=== PATIENT | male | born 1950 | race Asian ===

== ENCOUNTER 2021-04-10 08:00 | Inpatient (IN) | payer MEDICAID, OTHER, SELFPAY ==
[2021-04-10] VITALS (8 sets, daily range): BP systolic 134–170; BP diastolic 74–88; PULSE 54–87; RESP 16–20; TEMP 36.6–37.3; O2SAT 96–99; BMI 24.5
--- NOTE | ~2021-04-10 | CT_ITS ---
EXAMINATION: CT angio head neck CLINICAL INFORMATION: Right-sided neurological deficit. COMPARISON: No relevant prior imaging. TECHNIQUE: Emergency Medicine Nurse Practitioner images were obtained. A CT angiogram of the head and neck was performed in the arterial phase after the intravenous administration of 70 mL Omnipaque 350. Pre and delayed postcontrast images of the head were also obtained. MIP reconstructions were generated in multiple orientations at the acquisition workstation. Multiple three-dimensional surface rendered images and maximum intensity projection images were generated on a dedicated 3-D lab workstation. Arterial stenoses are measured in accordance with NASCET criteria or similar method if applicable. This CT examination was performed using dose optimization techniques as appropriate, including one or more of the following: Automated exposure control, iterative reconstruction, and adjustment of technique factors (mA and/or kVp) according to patient size (this includes techniques or standardized protocols for targeted exams where dose is matched to indication/reason for exam). Total exam dose-length product 2327 mGy-cm FINDINGS: Head: There is no acute intracranial hemorrhage or abnormal extra-axial collection. Postcontrast images reveal no abnormal mass or enhancement within the intracranial compartment. No intracranial mass effect or midline shift. Lateral and third ventricles are normal. No hydrocephalus. Garcia-white matter differentiation is preserved and there is no evidence of acute territorial infarct. The calvarium and skull base are intact. Mastoid air cells and middle ear cavities are well aerated. No extracranial sinus disease. CT angiogram neck: The aortic arch apex is normal. Origins of the major aortic branches are widely patent. Common carotid arteries and carotid bifurcations are normal. No stenosis of the extracranial internal carotid arteries. The cervical segments of the vertebral arteries as well as their origins are patent. CT angiogram head: Intracranial internal carotid arteries are patent. Intradural vertebral artery segments and basilar artery are patent. There is mild to moderate segmental narrowing involving the M1 segments of both middle cerebral arteries. This finding is well depicted on the left on axial MIP image 106 of 155 series 17 and on the right on axial MIP image 114 of the same series. There is also mild to moderate segmental narrowing involving the P2 segments of both posterior cerebral arteries. No intracranial large vessel occlusion. No evidence of aneurysm or high flow vascular malformation. The timing of the contrast injection provides adequate opacification of the dural venous sinuses which are patent. Other: Soft tissues of the neck including the thyroid gland are normal. Visualized lung apices are clear. There is no acute osseous finding. Specifically no worrisome lytic or blastic osseous lesion. Grossly no evidence of canal compromise. CT/CT angio head neck IMPRESSION: There is cerebrovascular disease with mild to moderate segmental narrowing involving the M1 segments of both middle cerebral arteries and the P2 segments of both posterior cerebral arteries. Otherwise unremarkable CT angiogram of the head and neck in that there is no intracranial large vessel occlusion. No stenosis of the cervical carotid or vertebral arteries. No evidence acute territorial infarct or hemorrhage. No abnormal intracranial mass or enhancement.
--- NOTE | ~2021-04-10 | MR_ITS ---
EXAMINATION: MR BRAIN WITHOUT CONTRAST CLINICAL INFORMATION: Stroke. COMPARISON: Head CTA 04/10/2021. TECHNIQUE: Multiplanar, multisequence imaging of the brain was performed without intravenous contrast. FINDINGS: There is an acute lacunar infarct within the left basal ganglia no large territorial infarction or hemorrhage is seen. Mild scattered foci of T2/FLAIR hyperintensity seen in the bilateral cerebral white matter most compatible with chronic microangiopathy. The ventricles are normal in size and configuration without evidence of hydrocephalus. The orbital contents appear normal. The extracranial structures are within normal limits. MR/MR head/brain wo con IMPRESSION: Acute lacunar infarction within the left basal ganglia. No hemorrhage or large territorial infarction. Background changes of mild chronic microangiopathy.
--- NOTE | ~2021-04-10 | XR_ITS ---
EXAMINATION: XR CHEST CLINICAL INFORMATION: Stroke symptoms. COMPARISON: None TECHNIQUE: Portable upright AP x2 views of the chest was obtained. FINDINGS: There is mild hyperinflation. The lungs are clear. There is no airspace consolidation, vascular congestion, groundglass opacity, or effusion. The heart is normal in size. The hilar and mediastinal contours are unremarkable. There is likely mild loss of height at level mid thoracic vertebral bodies. No paraspinal soft tissue swelling. XR/XR chest 1V IMPRESSION: Mild hyperinflation. Lungs clear.
--- NOTE | 2021-04-10 08:10 | ECG_ITS ---
Test Reason : ARM WEAKNESS Blood Pressure : / mmHG Vent. Rate : 066 BPM Atrial Rate : 066 BPM P-R Int : 154 ms QRS Dur : 084 ms QT Int : 396 ms P-R-T Axes : 050 028 -01 degrees QTc Int : 415 ms Normal sinus rhythm Minimal voltage criteria for LVH, may be normal variant Borderline ECG No previous ECGs available Referred By: Angela Liao Electronically Signed By:RYLEE HERNANDEZ
--- NOTE | 2021-04-10 08:10 | ED.NEUROSD ---
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 Mode of arrival: ambulatory Limitations: no limitations History of Present Illness Onset (ago): week(s) (2 weeks R arm, R face yesterday) Timing confirmed by: family member Location: speech, right face and right arm History of same: Yes Severity: mild Quality: weak Relieving factors: none Exacerbating factors: none Context: gradual onset On Anticoagulants: No Associated symptoms: denies other symptoms Treatments Prior to Arrival: none Related Data Home Medications Medication Instructions Recorded Confirmed ascorbic acid 125 mg-collagen, 1 cap PO DAILY 04/10/21 04/10/21 hydrolyzed 740 mg capsule (Collagen Plus Vitamin C) aspirin 81 mg chewable tablet 2 - 3 tab PO DAILY 04/10/21 04/10/21 ubidecarenone-omega 3-vit E 50 1 cap PO DAILY 04/10/21 04/10/21 mg-300 (180-120)mg-30 unit capsule Allergies Allergy/AdvReac Type Severity Reaction Status Date / Time No Known Allergies Allergy Verified 04/10/21 08:09 Review of Systems Review of Systems: Constitutional :No Fever, No Chills ENT/Mouth : No sore throat, No Rhinorrhea Eyes: No Eye Pain, No Swelling, No Redness Cardiovascular : No Chest Pain, No SOB Respiratory : No Cough, No Sputum, No Wheezing Gastrointestinal : No Nausea, No Vomiting, No Diarrhea, No Constipation, No abdominal Pain Genitourinary : No Dysuria, No Urinary Frequency, No Hematuria, Musculoskeletal : No joint pain, No Myalgias, No Joint Swelling Skin : No Skin Lesions, No rash Neuro : pos Weakness, No Numbness, No Dizziness, No Headache Psych : No Anxiety/Panic, No Depression All other systems reviewed and are negative [facility] Past Medical History Medical History No known health problems Social History Social History (Updated 04/10/21 @ 08:28 by Angela Liao DO) Patient Tobacco Use Status: Never used Tobacco Use of substances other than those prescribed or required for medical reasons: No Advance Directives: No Physical Exam Vital Signs: Vital Signs: Last Vital Signs Temp 98.5 F 04/10/21 08:08 Pulse 54 09/09/21 10:32 Resp 16 04/10/21 10:32 BP 139/74 04/10/21 10:32 Pulse Ox 98 04/10/21 10:32 Body Mass Index 24.5 Appearance: Alert. Oriented X3. No acute distress. Eyes: Pupils equal, round and reactive to light. ENT: Pharynx normal. Neck: Normal inspection. Neck supple. CVS: Normal heart rate and rhythm. Pulses normal. Respiratory: No respiratory distress. Breath sounds normal. Abdomen: Soft and non-tender. Skin: Skin warm and dry. Normal skin color. Normal skin turgor. Extremities: No lower extremity edema. No calf ttp Neuro: Oriented X 3. No sensory deficit. R hand 4+/5, R face mild facial droop lower, slurred speech mild. Course Course Course Narrative: given deficits and workup including vascular disease noted will admit for further workup MDM - Neuro Symptoms/Deficit MDM Narrative Medical decision making narrative: 70 yo male with no known medical problems on supplements and baby ASA here with 2 weeks of intermittent R arm weakness since yesterday has had R sided facial droop and slurred speech. Will need labs, CT and CTA of brain. No OAC. Given onset yesterday he is not a candidate for tPA at this time. Suspect stroke Lab Data Result diagrams: 04/10/21 08:30 04/10/21 08:30 Labs: Lab Results 04/10/21 04/10/21 04/10/21 Range/Units 08:30 08:30 08:30 WBC 4.7 L (4.8-10.8) X10*3/uL RBC 4.19 L (4.60-5.80) X10*6/uL Hgb 13.0 L (14.0-18.0) g/dl Hct 39.0 L (42-52) % MCV 93.1 (80-98) fL MCH 31.0 (27.0-33.0) pg MCHC 33.3 (31.0-36.0) g/dl RDW 12.6 (11.0-16.0) % Plt Count 168 (160-400) X10*3/uL MPV 10.7 (9.4-12.4) fL Immature Gran % (Auto) 0.2 (0.0-0.4) % Neut % (Auto) 58.8 (45-73) % Lymph % (Auto) 31.1 (20-40) % [place] % (Auto) 8.7 (2-11) % Eos % (Auto) 0.8 (0-4) % Baso % (Auto) 0.4 (0-2) % Lymph # (Auto) 1.5 (1.2-4.9) X10*3/uL [place] # (Auto) 0.4 (0.1-1.2) X10*3/uL Eos # (Auto) 0.0 (0.0-0.4) X10*3/uL Baso # (Auto) 0.0 (0.0-0.2) X10*3/uL Abs Immat Gran (auto) 0.01 (0.00-0.03) X10*3/uL Absolute Neuts (auto) 2.8 (2.0-8.3) X10*3/uL Absolute Nucleated RBC 0.000 (0.0-0.012) X10*3/uL Nucleated RBC % (auto) 0.0 (0.0-0.2) /100WBC PT 11.5 (9.9-13.0) SEC INR 1.0 (0.9-1.1) APTT 36.6 (24.1-38.0) SEC Sodium 141 (135-145) mmol/L Potassium 3.9 (3.3-5.1) mmol/L Chloride 108 (96-108) mmol/L Carbon Dioxide 27 (22-29) mmol/L Anion Gap 10 L (12-20) BUN 14 (9-16) mg/dL Creatinine 0.86 (0.5-1.4) mg/dL Estim Creat Clear Calc 61.7 Estimated GFR > 60 Random Glucose 112 (60-115) mg/dL Calcium 8.8 (8.4-10.2) mg/dL Magnesium 2.2 (1.6-2.6) mg/dL Total Bilirubin 0.6 (0.0-1.0) mg/dL Direct Bilirubin 0.2 (0.0-0.5) mg/dL AST 16 (5-37) U/L ALT 12 (0-40) U/L Alkaline Phosphatase 70 (39-117) U/L Troponin I High Sens (<3.5-35.0) ng/L Total Protein 6.3 L (6.5-8.0) g/dL Albumin 3.9 (3.5-5.0) g/dL TSH 1.20 (0.32-4.0) uIU/mL Urine Color Urine Appearance Urine pH (5.0-8.0) Ur Specific [place] (1.005-1.025) Urine Protein (NEG-TRACE) MG/DL Urine Glucose (UA) (NEG) MG/DL Urine Ketones (NEG) MG/DL Urine Blood (NEG) Urine Nitrite (NEG) Ur Leukocyte Esterase (NEG) COVID-19 (OTILIA) (Negative) COVID-19 Clin Com 04/10/21 04/10/21 04/10/21 Range/Units 08:30 08:30 10:19 WBC (4.8-10.8) X10*3/uL RBC (4.60-5.80) X10*6/uL Hgb (14.0-18.0) g/dl Hct (42-52) % MCV (80-98) fL MCH (27.0-33.0) pg MCHC (31.0-36.0) g/dl RDW (11.0-16.0) % Plt Count (160-400) X10*3/uL MPV (9.4-12.4) fL Immature Gran % (Auto) (0.0-0.4) % Neut % (Auto) (45-73) % Lymph % (Auto) (20-40) % [place] % (Auto) (2-11) % Eos % (Auto) (0-4) % Baso % (Auto) (0-2) % Lymph # (Auto) (1.2-4.9) X10*3/uL [place] # (Auto) (0.1-1.2) X10*3/uL Eos # (Auto) (0.0-0.4) X10*3/uL Baso # (Auto) (0.0-0.2) X10*3/uL Abs Immat Gran (auto) (0.00-0.03) X10*3/uL Absolute Neuts (auto) (2.0-8.3) X10*3/uL Absolute Nucleated RBC (0.0-0.012) X10*3/uL Nucleated RBC % (auto) (0.0-0.2) /100WBC PT (9.9-13.0) SEC INR (0.9-1.1) APTT (24.1-38.0) SEC Sodium (135-145) mmol/L Potassium (3.3-5.1) mmol/L Chloride (96-108) mmol/L Carbon Dioxide (22-29) mmol/L Anion Gap (12-20) BUN (9-16) mg/dL Creatinine (0.5-1.4) mg/dL Estim Creat Clear Calc Estimated GFR Random Glucose (60-115) mg/dL Calcium (8.4-10.2) mg/dL Magnesium (1.6-2.6) mg/dL Total Bilirubin (0.0-1.0) mg/dL Direct Bilirubin (0.0-0.5) mg/dL AST (5-37) U/L ALT (0-40) U/L Alkaline Phosphatase (39-117) U/L Troponin I High Sens < 3.5 (<3.5-35.0) ng/L Total Protein (6.5-8.0) g/dL Albumin (3.5-5.0) g/dL TSH (0.32-4.0) uIU/mL Urine Color YELLOW Urine Appearance CLEAR Urine pH 7.0 (5.0-8.0) Ur Specific [place] <= 1.005 (1.005-1.025) Urine Protein NEG (NEG-TRACE) MG/DL Urine Glucose (UA) NEG (NEG) MG/DL Urine Ketones NEG (NEG) MG/DL Urine Blood NEG (NEG) Urine Nitrite NEG (NEG) Ur Leukocyte Esterase NEG (NEG) COVID-19 (OTILIA) Negative (Negative) COVID-19 Clin Com See Note ECG Data Attestation: I personally reviewed and interpreted this ECG as follows: ECG interpretation date: 04/10/21 ECG interpretation time: 08:18 Interpretation: Rate: 66 Rhythm: NSR [place]: normal LVH Normal P waves. Normal JOSSY. Normal QRS complex. ST T wave : normal no AMITA qTC: normal prior studies: no acute ischemia The study has been interpreted contemporaneously by me. . NIH Stroke Scale Internal: Initial- Upon Arrival Level of Consciousness: Alert Level of Consciousness Questions: Answers both questions correctly Level of Consciousness Commands: Performs both tasks correctly Best Gaze: Normal Visual: No visual loss Facial Palsy: Minor paralyis Motor Arm (Right): Drift Motor Arm (Left): No drift Motor Leg (Right): No drift Motor Leg (Left): No drift Limb Ataxia: Absent Sensory: Normal Best Language: No aphasia Dysarthia: Mild to moderate dysarthria Extinction and Inattention: No abnormality Score: 3 Discharge Plan Discharge Clinical Impression: Dysarthria, Facial droop, Cerebrovascular disease Patient Disposition: Admitted As Inpatient Prescriptions: No Action aspirin 81 mg Tablet,Chewable 2 - 3 tab PO DAILY RF: 0 CoQ-10 and Fish Oil 50-300-30 mg-mg-unit Capsule 1 cap PO DAILY RF: 0 Collagen Plus Vitamin C 125-740 mg Capsule 1 cap PO DAILY RF: 0
[2021-04-10 08:40] LABS: MANUAL DIFF FLAG NO
[2021-04-10 08:41] LABS: Basophils Percent Auto 0.4 % (0-2); Eosinophils Percent Auto 0.8 % (0-4); Imm Gran Abs Auto 0.01 X10*3/uL (0.00-0.03); Imm Gran Pct Auto 0.2 % (0.0-0.4); Lymphocytes Absolute Auto 1.5 X10*3/uL (1.2-4.9); Lymphocytes Percent Auto 31.1 % (20-40); Mean Corpuscular HGB Conc 33.3 g/dl (31.0-36.0); Mean Corpuscular Volume 93.1 fL (80-98); Mean Platelet Volume 10.7 fL (9.4-12.4); Monocytes Absolute Auto 0.4 X10*3/uL (0.1-1.2); Monocytes Percent Auto 8.7 % (2-11); Neutrophils Absolute Auto 2.8 X10*3/uL (2.0-8.3); Neutrophils Percent Auto 58.8 % (45-73); Platelet Count 168 X10*3/uL (160-400); Red Blood Count 4.19 X10*6/uL (4.60-5.80); Red Cell Distribution Width 12.6 % (11.0-16.0); White Blood Count 4.7 X10*3/uL (4.8-10.8)
[2021-04-10 08:47] LABS: Prothrombin Time 11.5 SEC (9.9-13.0)
[2021-04-10 08:50] LABS: Partial Thromboplastin Time 36.6 SEC (24.1-38.0)
[2021-04-10 09:00] LABS: COVID-19 Test Negative (Negative); IDNOW Serial# 9DD0AD1C
[2021-04-10 09:01] LABS: Alanine Aminotransferase 12 U/L (0-40); Albumin Level 3.9 g/dL (3.5-5.0); Alkaline Phosphatase 70 U/L (39-117); Anion Gap 10 (12-20); Aspartate Amino Transferase 16 U/L (5-37); Bilirubin Direct 0.2 mg/dL (0.0-0.5); Bilirubin Total 0.6 mg/dL (0.0-1.0); Blood Urea Nitrogen 14 mg/dL (9-16); Calcium 8.8 mg/dL (8.4-10.2); Carbon Dioxide 27 mmol/L (22-29); Chloride 108 mmol/L (96-108); Creatinine Clr Calc Pharmacy 61.7; Estimated Glomerular Filt Rate > 60; Glucose Random 112 mg/dL (60-115); Magnesium 2.2 mg/dL (1.6-2.6); Potassium 3.9 mmol/L (3.3-5.1); Sodium 141 mmol/L (135-145); Total Protein 6.3 g/dL (6.5-8.0)
[2021-04-10 09:05] LABS: Troponin-I High Sensitivity < 3.5 ng/L (<3.5-35.0)
[2021-04-10] MEDS: iohexoL 350 MG/ML 100 ML INFUS..BTL IV (10:18)
--- NOTE | 2021-04-10 10:24 | PHA.MEDREC ---
Pharmacy Consult ? Medication Reconciliation Pharmacy has completed the medication reconciliation. Patient takes almost only supplements. Reports also taking Aspirin 2-3 tablets, ad gets them from [facility]. They reports getting a medication from [facility]. It is for emergency use for the heart/chest pain, and it dissolved under the tongue. Under my impression it is the [place] version of nitroglcerin. Patient has this medication on him. Patient reports he took none of his supplements today. Gabi Mendes, PharmD
[2021-04-10 10:34] LABS: Appearance Urine CLEAR; Color Urine YELLOW; Glucose Urine UA NEG (NEG); Leukocyte Esterase Urine NEG (NEG); Nitrite Urine NEG (NEG); Specific Gravity - Urine <= 1.005 (1.005-1.025); Urine Blood NEG (NEG); Urine Ketones NEG (NEG); Urine Protein NEG (NEG-TRACE)
[2021-04-10] MEDS: Aspirin 325 MG TABLET PO (11:36)
--- NOTE | 2021-04-10 12:46 | P.HPHOSP_ITS ---
History of Present Illness Date of Service: 04/10/21 Chief Complaint: R arm weakness This is a 70 yo Torrey Bhatti with a PMH of CAD s/p MS (no stent placed per reported history), suspected CVA back in 1985 who presents to the hospital with complaints of RUE weakness and facial drop which have been intermittently pr esent for the last week, but persisted since yesterday. The history is obtained with the help of a Mandarin speaking service shop foreman (#[id number]) as well as the help of the patients daughter and son-in-law who are bedside. Apparently, starting about 2 weeks ago the patient noticed that his RUE was weak and clumsy. This was first noticed when he went to scratch his head but was unable to. This resolved on its own, lasing about 1/2 the day. Subsequently it occured yesterday and he now reports persistent feelings of his hand being clumsy. The family also noted a facial droop starting at least yesterday and they also reported a change in his speech. In regards to his prior diagnosis of CVA and MS -- patient reports similar, although not as severe as currently, symptoms in 1985 (RUE weakness) and at that time he was told this may have been a stroke. However, this was not officially confirmed. He reports not issues since then until the current episode. In regards to his MS -- in 2017 (in [place]) he had substernal chest pain was diagnosed with an acute MS but no stents were placed. He was apparently on aspirin as some point in the past, but stopped this -- unclear when. He has restarted his aspirin for the last 2 weeks when these symptoms began. Upon arrival to the ED, he was noted to have slurred speech, mild RUE weakness and a facial droop. He underwent a CTA which was negative for any LV occlusions, but there was moderate disease noted. He was deemded out of the window for tPA as his last well known time was at least the day before arrival. A presumptive diagnosis of acute CVA was made and admission was requested. He reports he has been vaccinated for COVID 19 with Pfizer vaccine. Review of Systems Review of Systems: General - denies fevers or chills, denies weakness or fatigue HEENT -denies blurred vision, denies headache, denies sore throat Cardiovascular - denies chest pain or palpitations, denies edema Respiratory - denies shortness of breath, coughing, wheezing Gastrointestinal - denies abdominal pain, nausea, vomiting, diarrhea - denies flank pain, denies dysuria, denies frequency or urgency Musculoskeletal - denies back pain, denies hip pain, denies knee pain, denies shoulder pain Neurological - RUE weakness, difficulty speaking Skin, denies any bruising or redness Psychiatric - denies any suicidal ideation, hallucinations, homicidal ideation Endocrinology - denies intolerance to hot / cold temperatures Yes all other systems are reviewed and are negative [facility] Medical History (Updated 04/10/21 @ 13:01 by Terence Rader MD) CAD (coronary artery disease) CVA (cerebral vascular accident) No known health problems Family History (Updated 04/10/21 @ 13:03 by Terence Rader MD) Other CAD (coronary artery disease) Surgical History (Updated 04/10/21 @ 13:01 by Terence Rader MD) No significant past surgical history Social History (Updated 04/10/21 @ 13:02 by Terence Rader MD) Alcohol intake: never Patient Tobacco Use Status: Former Tobacco user Use of substances other than those prescribed or required for medical reasons: No Advance Directives: No Meds Allergies Allergy/AdvReac Type Severity Reaction Status Date / Time No Known Allergies Allergy Verified 04/10/21 08:09 Active Medications: Current Medications Generic Name Dose Route Start Last Admin Trade Name Freq PRN Reason Stop Dose Admin Acetaminophen 650 mg 04/10/21 12:38 Acetaminophen 325 Mg Tablet PO Q6H PRN Pain, Mild (Pain Scale 1-3) Aspirin 81 mg 04/11/21 09:00 Aspirin Enteric Coated 81 Mg Tablet.Dr PO DAILY [facility] Atorvastatin Calcium 80 mg 04/10/21 21:00 Atorvastatin Calcium 80 Mg Tablet PO BEDTIME [facility] Enoxaparin Sodium 40 mg 04/10/21 12:45 Enoxaparin Sodium 40 Mg/0.4 Ml Syringe SUBCUT Q24H [facility] Ondansetron HCl 4 mg 04/10/21 12:38 Ondansetron Hcl 4 Mg/2 Ml Vial IVPUSH Q8H PRN Nausea and Vomiting Pharmacy Consult 1 each 04/10/21 08:10 Consult Rx Perform Med Rec MISCELLANE ONCE PRN Consult order Sodium Chloride 3 ml 04/10/21 16:00 0.9 % Sodium Chloride Flush 3 Ml Syringe IVFLUSH QSHIFT [facility] Home Medications Medication Instructions Recorded Confirmed Last Taken Type ascorbic acid 125 mg-collagen, 1 cap PO DAILY 04/10/21 04/10/21 Unknown History hydrolyzed 740 mg capsule (Collagen Plus Vitamin C) aspirin 81 mg chewable tablet 2 - 3 tab PO DAILY 04/10/21 04/10/21 Unknown History ubidecarenone-omega 3-vit E 50 1 cap PO DAILY 04/10/21 04/10/21 Unknown History mg-300 (180-120)mg-30 unit capsule Physical Exam Vital Signs and Narrative: Vital Signs: Last Vital Signs Temp 98.5 F 04/10/21 08:08 Pulse 54 04/10/21 10:32 Resp 16 04/10/21 10:32 BP 139/74 04/10/21 10:32 Pulse Ox 98 04/10/21 10:32 Body Mass Index 24.5 Const: Other: Constitutional - Awake and Alert, No apparent distress Eyes - PERRLA, EOMI Cardiovascular - S1S2, RRR, No edema Respiratory - Normal lung expansion, Normal respiratory effort, No respiratory distress, CTA bilaterally Gastrointestinal - NT / ND; +BS; No rebound or guarding - No CVA tenderness Extremities - no calf tenderness bilaterally, no swelling Musculoskeletal - Normal inspection, normal ROM Skin - Warm/Dry Neurological - Alert & oriented x3, Mild weakness in the RUE -- 4+/5; R facial droop; Speech slurred per service shop foreman / family (speaks Mandarin); strenght in LUE and bilateral LE equal and normal Psychological - Appropriate affect Results Labs CBC and Chem 7: 04/10/21 08:30 04/10/21 08:30 Labs: Laboratory Results - last 24 hr 04/10/21 04/10/21 04/10/21 08:30 08:30 08:30 MCV 93.1 MCH 31.0 MCHC 33.3 RDW 12.6 Plt Count 168 MPV 10.7 Immature Gran % (Auto) 0.2 Neut % (Auto) 58.8 Lymph % (Auto) 31.1 [place] % (Auto) 8.7 Eos % (Auto) 0.8 Baso % (Auto) 0.4 Lymph # (Auto) 1.5 [place] # (Auto) 0.4 Eos # (Auto) 0.0 Baso # (Auto) 0.0 Abs Immat Gran (auto) 0.01 Absolute Neuts (auto) 2.8 Absolute Nucleated RBC 0.000 Nucleated RBC % (auto) 0.0 PT 11.5 INR 1.0 APTT 36.6 Anion Gap 10 L Estim Creat Clear Calc 61.7 Estimated GFR > 60 Random Glucose 112 Calcium 8.8 Magnesium 2.2 Total Bilirubin 0.6 Direct Bilirubin 0.2 AST 16 ALT 12 Alkaline Phosphatase 70 Troponin I High Sens Total Protein 6.3 L Albumin 3.9 TSH 1.20 Urine Color Urine Appearance Urine pH Ur Specific [place] Urine Protein Urine Glucose (UA) Urine Ketones Urine Blood Urine Nitrite Ur Leukocyte Esterase COVID-19 (OTILIA) COVID-19 Clin Com 04/10/21 04/10/21 04/10/21 08:30 08:30 10:19 MCV MCH MCHC RDW Plt Count MPV Immature Gran % (Auto) Neut % (Auto) Lymph % (Auto) [place] % (Auto) Eos % (Auto) Baso % (Auto) Lymph # (Auto) [place] # (Auto) Eos # (Auto) Baso # (Auto) Abs Immat Gran (auto) Absolute Neuts (auto) Absolute Nucleated RBC Nucleated RBC % (auto) PT INR APTT Anion Gap Estim Creat Clear Calc Estimated GFR Random Glucose Calcium Magnesium Total Bilirubin Direct Bilirubin AST ALT Alkaline Phosphatase Troponin I High Sens < 3.5 Total Protein Albumin TSH Urine Color YELLOW Urine Appearance CLEAR Urine pH 7.0 Ur Specific [place] <= 1.005 Urine Protein NEG Urine Glucose (UA) NEG Urine Ketones NEG Urine Blood NEG Urine Nitrite NEG Ur Leukocyte Esterase NEG COVID-19 (OTILIA) Negative COVID-19 Clin Com See Note Imaging Radiologist's Impressions: Impressions Chest X-Ray 04/10/21 08:10 IMPRESSION: Mild hyperinflation. Lungs clear. Head/Neck CTA 04/10/21 08:10 IMPRESSION: There is cerebrovascular disease with mild to moderate segmental narrowing involving the M1 segments of both middle cerebral arteries and the P2 segments of both posterior cerebral arteries. Otherwise unremarkable CT angiogram of the head and neck in that there is no intracranial large vessel occlusion. No stenosis of the cervical carotid or vertebral arteries. No evidence acute territorial infarct or hemorrhage. No abnormal intracranial mass or enhancement. Assessment and Plan (1) CVA (cerebral vascular accident): Status: Acute This is a 70 yo Mandarin speaking male who presents to the hospital with acute/subacute neurological deficits most concerning for CVA. He is admitted for further work up and treatment. 1. Suspected Acute vs subacute CVA Risk factors include prior CVA and CAD; also was a previous smoker, stopped in early Check Lipids, A1C; CTA negative for carotid stenosis MRI Brain, telemonitor, 2d echo Will need neurology evaluation, consult ordered usual stroke protocol -- PT/OT, nursing swallow eval prior to oral continue asa 81 and start lipitor 80 once he passes swallow evaluation 2. CAD s/p MS in 2017, per pt report -- no stents placed 2d echo as above DVT pptx - Estefania Endorses his daughter Ana Bryan has HCP He is undecided about code status -- advised him to speak with his family about this; for the time being, agrees on Full Code Quality Stroke Does the patient have a stroke diagnosis?: No VTE Prior VTE?: No VTE Risk Level:: Medical - moderate - high VTE Device Contraindication: Treatment Not Indicated VTE Drug Contraindication: N/A - Med Ordered
--- NOTE | 2021-04-10 13:00 | CA_ITS ---
Transthoracic Echocardiogram Patient (Last, First, Middle): LYLY RODRIGUEZ, Gender: Male Date of : 1950 Age: 70 Procedure Date: 04/10/2021 Procedure Type: Transthoracic Echocardiogram Location: ER Height: 157.48 cm Weight: 61.24 kg BSA: 1.62 m2 Heart Rate: bpm Plug Machine Operator: MENG Referring MD: Terence Rader MD Symptoms: Acute CVA, eval for cardioembolic source, history of CAD Study Quality: Good ECG Rhythm: Sinus Conclusions: - The left ventricular systolic function is normal. The calculated ejection fraction is 61% by biplane method. - There is mild aortic valve regurgitation. Findings Left Ventricle Normal left ventricular cavity size. There is normal left ventricular wall thickness. The left ventricular systolic function is normal. The calculated ejection fraction is 61% by biplane method. There is no evidence of regional wall motion abnormalities. Diastolic function is normal for age. Right Ventricle Normal right ventricular cavity size and systolic function. Atria Both atria are normal in size. Aortic Valve There is a normal trileaflet aortic valve. There is no aortic valve stenosis. There is mild aortic valve regurgitation. Mitral Valve The mitral valve appears normal. There is trace mitral valve regurgitation. There is no mitral valve stenosis. Pulmonic Valve The pulmonic valve was not well visualized. Tricuspid Valve Normal tricuspid valve structure. There is trace tricuspid valve regurgitation. The pulmonary artery systolic pressure is normal. Great Vessels The aortic annulus, sinuses of valsalva, and asc aorta are normal in size. Venous The inferior vena cava is normal in size and collapses greater than 50% with inspiration. Pericardium/Pleural There is no evidence of pericardial effusion. Prior Study Comparison No prior study available for comparison. Measurements 2D Linear Measurements IVSd: 1.04 0.6-0.9/0.6-1.0 cm LVIDd: 5.15 3.9-5.3/4.2-5.9 cm LVIDd Index: 3.18 2.4-3.2/2.2-3.1 cm/m2 LVIDs: 3.40 2.0-3.6 cm LVPWd: 0.95 0.7-1.1 cm Ao Root: 3.60 2.1-3.5 cm LA Diam: 3.50 2.7-3.8/3.0-4.0 cm LAIDs Index: 2.16 1.5-2.3 cm/m2 LV Mass: 235.70 67-162/88-224 g LV Mass Index: 145.50 43-95/49-115 g/m2 LVOT Diam: 2.30 3.0+(-)1.3 cm 2D Systolic Function EF 4C: 57.00 >55% EF 2C: 65.90 >55% EF BiP: 61.20 >55% Mitral Valve MV Pk E: 0.44 MV PK A: 0.54 MV Decel Time: 269.00 E/A: 0.80 E'Lateral: 9.90 E'Medial: 6.64 E/E' Med: 6.60 E/E' Lat: 4.50 PHT: 79.00 MVA PHT: 2.78 Decel [place]: 1.64 Aortic Valve AoV Pk Jerome: 1.60 AoV Mn Jerome: 1.04 AoV VTI: 0.33 AoV Pk Grad: 10.00 Aov Mn Grad: 5.00 TIFFANIE Cont.VTI: 2.73 AI Pk Jerome: 4.78 AI [place]: 2.46 LVOT LVOT Pk Jerome: 1.02 LVOT Mn Jerome: 0.67 LVOT VTI: 0.22 LVOT Pk Grad: 4.00 LVOT Mn Grad: 2.00 LVOT Diam: 2.30 LVOT Area: 4.15 Diastolic Function MV Pk E: 0.44 MV Pk A: 0.54 E/A: 0.80 E'Medial: 6.64 E/E' Med: 6.60 E' Laterial: 9.90 E/E' Lat: 4.50 Right Ventricle TAPSE (mm): 1.96 TVS' Jerome: 11.60 Tricuspid Valve TR Pk Jerome: 2.01 TR Pk Grad: 16.00 RA Press: 3.00 RVSP: 19.00 Great Vessels Aorta Ao Root-2D: 3.60 2.0-3.7 cm Ao Asc: 3.60 2.1-3.4 cm Ao Arch: 3.00 Updated in Other Vendor System with Status of Final Naseem Bowers MD electronically signed on 04/10/2021 4:47:14 PM with status of Final
[2021-04-10 13:31] LABS: Estimated Average Glucose 97 mg/dL
[2021-04-10] MEDS: Enoxaparin Sodium 40 MG/0.4 ML SYRINGE SUBCUT (14:08)
[2021-04-10] MEDS: 0.9 % Sodium Chloride Flush 3 ML SYRINGE IVFLUSH ×2 (17:21→20:48)
--- NOTE | 2021-04-10 17:24 | P.CNNE_ITS ---
History of Present Illness Data of Consult Service Date: 04/10/21 Primary Care Provider: None Physician HPI Reason for consult: Slurred speech and right upper extremity weakness with facial droop This is a 70-year-old man with a possible history of worse small stroke in 1985 while in [place] with right upper extremity weakness had an episode of rightt- sided weakness and some slurring about 2 weeks ago but resolved. Symptoms occurred yesterday and when they persisted more than 24 hhours. He decided to come in. He was noted to have a right facial droop, slurring of speech and clumsiness of the right hand. He had a CT scan of the brain which did not show any acute findings and a CTA which did not show any evidence of large vessel occlusive disease. There is mild to moderate atherosclerosis of the intracra nial M1 segment. Review of Systems Review of Systems: General - denies fevers or chills, denies weakness or fatigue HEENT -denies blurred vision, denies headache, denies sore throat Cardiovascular - denies chest pain or palpitations, denies edema Respiratory - denies shortness of breath, coughing, wheezing Gastrointestinal - denies abdominal pain, nausea, vomiting, diarrhea - denies flank pain, denies dysuria, denies frequency or urgency Musculoskeletal - denies back pain, denies hip pain, denies knee pain, denies shoulder pain Neurological - RUE weakness, difficulty speaking Skin, denies any bruising or redness Psychiatric - denies any suicidal ideation, hallucinations, homicidal ideation Endocrinology - denies intolerance to hot / cold temperatures Yes all other systems are reviewed and are negative [facility] Past Medical History Medical History CAD (coronary artery disease) CVA (cerebral vascular accident) No known health problems Family History Family History (Updated 04/10/21 @ 13:03 by Terence Rader MD) Other CAD (coronary artery disease) Surgical History Surgical History No significant past surgical history Social History Social History (Updated 04/10/21 @ 13:02 by Terence Rader MD) Household Members: Family Housing: House Alcohol intake: never Patient Tobacco Use Status: Former Tobacco user Meds Allergies Allergy/AdvReac Type Severity Reaction Status Date / Time No Known Allergies Allergy Verified 04/10/21 08:09 Active Medications: Current Medications Generic Name Dose Route Start Last Admin Trade Name Freq PRN Reason Stop Dose Admin Acetaminophen 650 mg 04/10/21 12:38 Acetaminophen 325 Mg Tablet PO Q6H PRN Pain, Mild (Pain Scale 1-3) Aspirin 81 mg 04/11/21 09:00 Aspirin Enteric Coated 81 Mg Tablet.Dr PO DAILY [facility] Atorvastatin Calcium 80 mg 04/10/21 21:00 Atorvastatin Calcium 80 Mg Tablet PO BEDTIME [facility] Enoxaparin Sodium 40 mg 04/10/21 12:45 04/10/21 14:08 Enoxaparin Sodium 40 Mg/0.4 Ml Syringe SUBCUT 40 mg Q24H TEE Administration Ondansetron HCl 4 mg 04/10/21 12:38 Ondansetron Hcl 4 Mg/2 Ml Vial IVPUSH Q8H PRN Nausea and Vomiting Pharmacy Consult 1 each 04/10/21 08:10 Consult Rx Perform Med Rec MISCELLANE ONCE PRN Consult order Sodium Chloride 3 ml 04/10/21 16:00 04/10/21 17:21 0.9 % Sodium Chloride Flush 3 Ml Syringe IVFLUSH 3 ml QSHIFT [facility] Administration Home Medications Medication Instructions Recorded Confirmed Last Taken Type ascorbic acid 125 mg-collagen, 1 cap PO DAILY 04/10/21 04/10/21 Unknown History hydrolyzed 740 mg capsule (Collagen Plus Vitamin C) aspirin 81 mg chewable tablet 2 - 3 tab PO DAILY 04/10/21 04/10/21 Unknown History ubidecarenone-omega 3-vit E 50 1 cap PO DAILY 04/10/21 04/10/21 Unknown History mg-300 (180-120)mg-30 unit capsule Physical Exam Vital Signs: Vital Signs: Last Vital Signs Temp 99.1 F 04/10/21 16:00 Pulse 55 04/10/21 16:00 Resp 18 04/10/21 16:00 BP 170/75 H 04/10/21 16:00 Pulse Ox 98 04/10/21 16:00 Body Mass Index 24.5 Const: Other: Constitutional - Awake and Alert, No apparent distress Eyes - PERRLA, EOMI Cardiovascular - S1S2, RRR, No edema Respiratory - Normal lung expansion, Normal respiratory effort, No respiratory distress, CTA bilaterally Gastrointestinal - NT / ND; +BS; No rebound or guarding - No CVA tenderness Extremities - no calf tenderness bilaterally, no swelling Musculoskeletal - Normal inspection, normal ROM Skin - Warm/Dry Neurological - Alert & oriented x3, Mild weakness in the RUE -- 4+/5; R facial droop; Speech slurred per watch assembly instructor / family (speaks Mandarin); strenght in LUE and bilateral LE equal and normal Psychological - Appropriate affect Neuro: Other: Mild dysarthria. Right facial droop and right upper extremity drift Results Labs CBC & Chem 7: 04/10/21 08:30 04/10/21 08:30 Labs: Short CBC 04/10/21 Range/Units 08:30 WBC 4.7 L (4.8-10.8) X10*3/uL Hgb 13.0 L (14.0-18.0) g/dl Hct 39.0 L (42-52) % Plt Count 168 (160-400) X10*3/uL BMP 04/10/21 08:30 Sodium 141 Potassium 3.9 Chloride 108 Carbon Dioxide 27 BUN 14 Creatinine 0.86 Calcium 8.8 Liver Function 04/10/21 Range/Units 08:30 Total Bilirubin 0.6 (0.0-1.0) mg/dL Direct Bilirubin 0.2 (0.0-0.5) mg/dL AST 16 (5-37) U/L ALT 12 (0-40) U/L Alkaline Phosphatase 70 (39-117) U/L Albumin 3.9 (3.5-5.0) g/dL Urine 04/10/21 Range/Units 10:19 Urine Color YELLOW Urine Appearance CLEAR Urine pH 7.0 (5.0-8.0) Ur Specific [place] <= 1.005 (1.005-1.025) Urine Protein NEG (NEG-TRACE) MG/DL Urine Glucose (UA) NEG (NEG) MG/DL Assessment and Plan (1) CVA (cerebral vascular accident): Status: Acute He appears to have had a small acute stroke in the left hemisphere, which is the more than 12 hours old and he was not a candidate for TPA because sabino presented late. His CT does not show any major occlusive disease. Recommendation MRI of the brain to confirm acute stroke. PT, OT and speech therapy. This is a 70 yo Mandarin speaking male who presents to the hospital with acute/subacute neurological deficits most concerning for CVA. He is admitted for further work up and treatment. 1. Suspected Acute vs subacute CVA Risk factors include prior CVA and CAD; also was a previous smoker, stopped in early Check Lipids, A1C; CTA negative for carotid stenosis MRI Brain, telemonitor, 2d echo Will need neurology evaluation, consult ordered usual stroke protocol -- PT/OT, nursing swallow eval prior to oral continue asa 81 and start lipitor 80 once he passes swallow evaluation 2. CAD s/p NM in 2017, per pt report -- no stents placed 2d echo as above DVT pptx - Estefania Endorses his daughter Ana Bryan has HCP He is undecided about code status -- advised him to speak with his family about this; for the time being, agrees on Full Code Procedures Date of Service Date of Service: 04/10/21
[2021-04-10] MEDS: Atorvastatin Calcium 80 MG TABLET PO (20:47)
[2021-04-11 02:00] VITALS: BP 144/87; PULSE 71; RESP 18; TEMP 36.8; O2SAT 97
[2021-04-11 04:00] VITALS: BP 136/72; PULSE 76; RESP 18; TEMP 36.8; O2SAT 99
[2021-04-11 06:00] VITALS: BP 132/74; PULSE 77; RESP 18; TEMP 36.9; O2SAT 98
[2021-04-11 07:02] LABS: MANUAL DIFF FLAG NO
[2021-04-11 07:07] LABS: Basophils Percent Auto 0.4 % (0-2); Eosinophils Absolute Auto 0.1 X10*3/uL (0.0-0.4); Eosinophils Percent Auto 1.4 % (0-4); Hematocrit 39.2 % (42-52); Hemoglobin 12.9 g/dl (14.0-18.0); Imm Gran Abs Auto 0.01 X10*3/uL (0.00-0.03); Imm Gran Pct Auto 0.2 % (0.0-0.4); Lymphocytes Absolute Auto 1.5 X10*3/uL (1.2-4.9); Lymphocytes Percent Auto 30.4 % (20-40); Mean Corpuscular HGB Conc 32.9 g/dl (31.0-36.0); Mean Corpuscular Hemoglobin 30.3 pg (27.0-33.0); Mean Platelet Volume 11.2 fL (9.4-12.4); Monocytes Absolute Auto 0.5 X10*3/uL (0.1-1.2); Monocytes Percent Auto 10.7 % (2-11); Neutrophils Absolute Auto 2.8 X10*3/uL (2.0-8.3); Neutrophils Percent Auto 56.9 % (45-73); Platelet Count 177 X10*3/uL (160-400); Red Blood Count 4.26 X10*6/uL (4.60-5.80); Red Cell Distribution Width 12.6 % (11.0-16.0); White Blood Count 4.9 X10*3/uL (4.8-10.8)
[2021-04-11 07:35] LABS: Anion Gap 10 (12-20); Blood Urea Nitrogen 13 mg/dL (9-16); Calcium 8.6 mg/dL (8.4-10.2); Carbon Dioxide 24 mmol/L (22-29); Chloride 110 mmol/L (96-108); Cholesterol 169 mg/dL; Creatinine Clr Calc Pharmacy 64.7; Estimated Glomerular Filt Rate > 60; Glucose Random 90 mg/dL (60-115); HDL Cholesterol 47 mg/dL; LDL Cholesterol Calculated 110 mg/dl; Potassium 4.1 mmol/L (3.3-5.1); Sodium 140 mmol/L (135-145); Triglycerides 60 mg/dL
[2021-04-11 08:00] VITALS: BP 136/74; PULSE 64; RESP 20; TEMP 36.9; O2SAT 97
[2021-04-11] MEDS: Aspirin Enteric Coated 81 MG TABLET.DR PO (08:23)
[2021-04-11] MEDS: 0.9 % Sodium Chloride Flush 3 ML SYRINGE IVFLUSH (08:24)
--- NOTE | 2021-04-11 08:39 | MHC.CM.PN ---
ref. made to [facility] [place] as patient has no medical insurance listed. pt has a daughter who is his HCP and may be utilized c communication as patient speaks mandarin slovenian. pending PT, OT and speech evals pt may benefit from going to rehab. this will be discussed c pt and HCP at the approp. time . absence of payor source will create a barrier to rehab if elected. cm to cont. to follow.
--- NOTE | 2021-04-11 10:45 | P.DS_ITS ---
DS: Providers Provider Date of Service: 04/11/21 Date of admission: 04/10/21 12:38 Primary care physician: None Physician Consults: 04/10/21 12:40 Consult to Neurology Routine Consulting Provider: Pa Joy Reason for consultation: stroke DS: Diagnosis Discharge Diagnosis (1) CVA (cerebral vascular accident): Status: Acute DS: Summary Hospital Course Hospital Course: From H&P on day of admission This is a 70 yo Mandaramaxx Bhatti with a PMH of CAD s/p GA (no stent placed per reported history), suspected CVA back in 1985 who presents to the hospital with complaints of RUE weakness and facial drop which have been intermittently present for the last week, but persisted since yesterday. The history is obtained with the help of a Mandarin speaking wheel inspector (#[id number]) as well as the help of the patients daughter and son-in-law who are bedside. Apparently, starting about 2 weeks ago the patient noticed that his RUE was weak and clumsy. This was first noticed when he went to scratch his head but was unable to. This resolved on its own, lasing about 1/2 the day. Subsequently it occured yesterday and he now reports persistent feelings of his hand being clumsy. The family also noted a facial droop starting at least yesterday and they also reported a change in his speech. In regards to his prior diagnosis of CVA and GA -- patient reports similar, although not as severe as currently, symptoms in 1985 (RUE weakness) and at that time he was told this may have been a stroke. However, this was not officially confirmed. He reports not issues since then until the current episode. In r egards to his GA -- in 2017 (in [place]) he had substernal chest pain was diagnosed with an acute GA but no stents were placed. He was apparently on aspirin as some point in the past, but stopped this -- unclear when. He has restarted his aspirin for the last 2 weeks when these symptoms began. Upon arrival to the ED, he was noted to have slurred speech, mild RUE weakness and a facial droop. He underwent a CTA which was negative for any LV occlusions, but there was moderate disease noted. He was deemed out of the window for tPA as his last well known time was at least the day before arrival.? A presumptive diagnosis of acute CVA was made and admission was requested. He reports he has been vaccinated for COVID 19 with Pfizer vaccine. Due to right facial droop, mild right upper extremity weakness and slurred speech he was was admitted to the telemetry floor. He was started on aspirin, statin. He was evaluated by Neurology. He had brain MRI which confirmed acute lacunar infarct of the left basal ganglia. Echocardiogram was obtained and was unremarkable. Lipid profile was checked, LDL was 110. He was evaluated by PT/OT who did not feel that he required ongoing outpatient therapy. Due to ongoing slurred speech he was evaluated by speech therapy and will likely need to continue outpatient speech therapy once a PCP has been obtain. Unfortunately the patient does not have health insurance. He met with financial services to assist in obtaining health insurance and should obtain a PCP for ongoing medical management once that is in place. Time Spent with Patient Time attestation: Total time spent providing and/or coordinating discharge services: Discharge coordination time: Greater than 30 minutes Quality: Stroke Does the patient have a stroke diagnosis?: Yes Reason for No Anti-thrombotic at DC: N/A - Med Ordered Reason for No Anticoagulant at DC: N/A - Med Ordered Reason Not Initiating IV-Tpa: Drug treatment not indicated Reason for No Anti-thrombotic by Day Two: N/A - Med Ordered Reason for No Statin at DC: N/A - Med Ordered Physical Exam Vital Signs: Vital Signs: Last Vital Signs Temp 98.5 F 04/11/21 08:00 Pulse 64 04/11/21 08:00 Resp 20 04/11/21 08:00 BP 136/74 04/11/21 08:00 Pulse Ox 97 04/11/21 08:00 Body Mass Index 24.5 Const: General: alert and awake Nutritional Appearance: well nourished HENMT: Head: Yes normocephalic and Yes atraumatic Eyes: Sclerae: sclerae normal Resp: Effort & Inspection: normal respiratory effort and no respiratory distress Cardio: Rate: regular rate Rhythm: regular rhythm GI: Palpation (GI): Soft to palpation and nontender Neuro: Other: right facial droop, slurred speech DS: Data Data Completed and Pending Labs on day of discharge: Laboratory Results - last 24 hr 04/10/21 04/11/21 04/11/21 08:30 05:51 05:51 WBC 4.9 RBC 4.26 L Hgb 12.9 L Hct 39.2 L MCV 92.0 MCH 30.3 MCHC 32.9 RDW 12.6 Plt Count 177 MPV 11.2 Immature Gran % (Auto) 0.2 Neut % (Auto) 56.9 Lymph % (Auto) 30.4 Isabela % (Auto) 10.7 Eos % (Auto) 1.4 Baso % (Auto) 0.4 Lymph # (Auto) 1.5 [place] # (Auto) 0.5 Eos # (Auto) 0.1 Baso # (Auto) 0.0 Abs Immat Gran (auto) 0.01 Absolute Neuts (auto) 2.8 Absolute Nucleated RBC 0.000 Nucleated RBC % (auto) 0.0 Sodium 140 Potassium 4.1 Chloride 110 H Carbon Dioxide 24 Anion Gap 10 L BUN 13 Creatinine 0.82 Estim Creat Clear Calc 64.7 Estimated GFR > 60 Random Glucose 90 Estimat Average Glucose 97 Hemoglobin A1c % 5.0 Calcium 8.6 Triglycerides 60 Cholesterol 169 LDL Cholesterol, Calc 110 HDL Cholesterol 47 Discharge Plan Discharge Patient Disposition: Home, Self-Care Discharge Diagnosis: Acute lacunar infarct Referrals: Physician,None [Primary Care Provider] - 1 Week Discharge Medications: New atorvastatin 80 mg Tablet 80 mg PO BEDTIME 30 Days Qty: 30 RF: 0 aspirin 81 mg Tablet,Delayed Release (Dr/Ec) 81 mg PO DAILY 30 Days Qty: 30 RF: 0 Continued ubidecarenone-omega 3-vit E 50-300-30 mg-mg-unit Capsule 1 cap PO DAILY RF: 0 Collagen Plus Vitamin C 125-740 mg Capsule 1 cap PO DAILY RF: 0 Discontinued aspirin 81 mg Tablet,Chewable 2 - 3 tab PO DAILY RF: 0 Discharge Orders: Discharge Order (Routine); Ordered 04/11/21 Ordered By: Magdalena Leavitt Activity on Discharge: As tolerated Stand Alone Forms: Patient Portal Discharge page Care Plan Goals: See below Health Concerns: Acute stroke Plan of Treatment: Acute stroke. Take a baby aspirin daily. You have been started on a new cholesterol medication, this should be taken daily as prescribed. Please obtain a PCP for medical follow up. You will likely need speech therapy once a PCP has been arranged. Assessment: See discharge summary
[2021-04-11 12:00] VITALS: BP 141/77; PULSE 66; RESP 18; TEMP 36.6; O2SAT 96
[2021-04-11] MEDS: Enoxaparin Sodium 40 MG/0.4 ML SYRINGE SUBCUT (12:12)
--- NOTE | 2021-04-11 12:28 | MHC.STROKE ---
I MET WITH THE PATIENT TODAY TO DISCUSS HIS DIAGNOSIS. HIS DAUGHTER AND SON-IN-LAW WERE PRESENT, THE NURSE ALSO SPEAKS HIS LANGUAGE. I REVIEWED HIS MRI SCAN AND PROVIDED AN IMAGE. I DISCUSSED THE LOCATION OF THE STROKE AND THE CORRELATING SYMPTOMS. WE REVIEWED A POWERPOINT HANDOUT AND ALL OF HIS RISK FACTORS. I ANSWERED ALL OF THEIR QUESTIONS RELATED TO DIET, EXERCISE, MEDICATIONS. THEY CAN GET SMALL PORTIONS OF THE MEDICATIONS UNTIL HE HAS INSURANCE. I ADVISED THEM TO GET A BP MACHINE. I PROVIDED A BP MONITORING CHECKLIST, INFORMATION ON DIET. I GAVE HIM A SQUEEZE BALL FOR HIS RIGHT HAND. SEE DR CORBETT'S NOTE ALSO. ALL STROKE MEASURES MET. THE STROKE IS OVER 12 HOURS OLD, OUT OF THE WINDOW FOR TPA.
--- NOTE | 2021-04-11 13:39 | MHC.SL.SWA ---
Speech Pathologist Impression: Within Functional Limits Risk of Aspiration Due to: recent CVA Dysphasia Diet Status: No Change Liquid Consistency and Strategies for Safe Swallow: Liquid Intake Recommendation: Thin Liquid Intake Strategies: Solid Food Consistency: Dietary Recommendations: Regular Additional Modifications to Solid Foods: Use of extra sauce/gravy to moisten tough foods such as meat. Oral Medication Intake: Whole with Liquid Compensatory Strategies and Precautions to be Taken for Safe Swallow: Sitting Upright (90 deg) Small Bites and Sips Supervision While Eating and Drinking for Safe Swallow: Intermittent Supervision Swallowing Recommended Treatments: Recommendation for Speech: Speech Therapy through [facility] Comment: Continued speech therapy via [facility] is recommended to address dysarthria. Per PA, pt to be discharged from [facility] this date. Reviewed general safe swallowing strategies and strategies to improve clarity of speech with pt and his daughter. Welding Setter Clinican/Clinical Fellow: No Supervisory Statement: I have reviewed and agree with the student/clinical fellow's documentation: N/A Speech Language Pathologist: Angle Law M.A., CCC-FARM EQUIPMENT ENGINEER
[2021-04-11 13:43] VITALS: BP 136/76; PULSE 70; RESP 20; O2SAT 97
== END 2021-04-11 14:42 | disposition home or self-care (01) | DRG 45 ==
LOC: HO.ED 11:33 → HO.EDOVER 13:07 → HO.IMC 14:27
PROVIDERS: Admitting Provider Family Medicine; Emergency Provider Emergency Medicine; Visit Provider Physician Assistant Medical
DX: I63.81 Other cerebral infarction due to occlusion or stenosis of small artery (principal); G83.21 Monoplegia of upper limb affecting right dominant side; R29.810 Facial weakness; I25.10 Atherosclerotic heart disease of native coronary artery without angina pectoris; R29.703 NIHSS score 3; Z20.822 Contact with and (suspected) exposure to COVID-19; Z79.82 Long term (current) use of aspirin; Z87.891 Personal history of nicotine dependence; Z79.899 Other long term (current) drug therapy
CPT/HCPCS: 36415; 70496; 70498; 70551; 71045; 80048; 80061; 80076; 81003; 83036; 83735; 84443; 84484; 85025; 85610; 85730; 87635; 92610; 93005; 93306; 97162; 97166; 99285; J1650; Q9967

== ENCOUNTER 2021-07-15 07:06 | Inpatient (IN) | payer MEDICAID, OTHER, SELFPAY ==
--- NOTE | ~2021-07-15 | MR_ITS ---
EXAMINATION: MR ABDOMEN WITHOUT AND WITH CONTRAST CLINICAL INFORMATION: Abdominal pain COMPARISON: Previous CT of the abdomen and pelvis from yesterday TECHNIQUE: MR abdomen was performed without and with use of 5.5 mL intravenous Gadavist gadolinium contrast. Postcontrast images are performed in multiphase dynamic sequences. Imaging was performed in 3 planes. FINDINGS: LUNG BASES: The visualized lung bases are unremarkable. LIVER, GALLBLADDER, AND BILIARY TREE: The liver is normal in size, smooth in contour, and normal in signal. No focal hepatic lesion or biliary ductal dilatation is present. The gallbladder is unremarkable with no evidence of gallbladder wall thickening, or obvious pericholecystic inflammatory changes. PANCREAS: Unremarkable. SPLEEN: Normal. ADRENAL GLANDS: Normal. KIDNEYS AND URETERS: The kidneys are normal in size, shape, and enhance symmetrically. No hydronephrosis. There is a small 5 mm nonenhancing dark on T1 and bright on T2-weighted sequences lesion in the lower pole of the right kidney probably representing a cyst. No perinephric stranding. GASTROINTESTINAL TRACT: The appendix is not optimally visualized. The appendix is seen on sagittal and coronal sequences only. The appendix remains dilated measuring 1.3 cm. There is wall thickening and enhancement of the wall of the appendix. There is question of a small amount of fluid surrounding the appendix. Appearance remains suspicious for acute appendicitis. No bowel obstruction. No ascites or fluid collection. ABDOMINAL WALL: No significant hernia is appreciated. LYMPH NODES: No lymphadenopathy. VASCULAR: Unremarkable. OSSEOUS STRUCTURES: There are degenerative changes of the spine. There is a moderate old-appearing T12 vertebral body compression fracture. There may be additional old mid thoracic spine compression fractures. There is a right lesion in the T7 vertebral body probably representing a hemangioma. MR/MR abdomen wo/w con IMPRESSION: Exam was not dedicated for the appendix and the appendix is not imaged on all sequences. Appearance is again suspicious for acute appendicitis. Probable tiny right renal cyst. Thoracic spine compression fractures.
--- NOTE | ~2021-07-15 | CT_ITS ---
EXAMINATION: CT ABDOMEN AND PELVIS WITH CONTRAST CLINICAL INFORMATION: Left lower and upper quadrant abdominal pain. COMPARISON: None TECHNIQUE: Multidetector volumetric images were obtained from the superior aspect of the liver through the pubic symphysis following administration 85 mL of Omnipaque 350 intravenous contrast. Sagittal and coronal reformatted images were obtained on the technologist's workstation. Oral contrast: No This CT examination was performed using dose optimization techniques as appropriate, variously including the following: *Automated exposure control *Adjustment of mA and/or kV according to patient size (this includes techniques or standardized protocols for targeted exams where dose is matched to indication/reason for exam; i.e. extremities or head) *Use of iterative reconstruction technique DLP: 375 mGy-cm FINDINGS: LUNG BASES: Significant motion artifacts are present, grossly unremarkable. LIVER, GALLBLADDER, AND BILIARY TREE: The liver is normal in size, shape, and attenuation. Curvilinear calcification is noted within the left lobe of the liver (208:4). No biliary ductal dilatation is present. The gallbladder is unremarkable with no evidence of radiopaque gallstones, gallbladder wall thickening, or obvious pericholecystic inflammatory changes. PANCREAS: The pancreatic duct is visualized however, by measurement is normal in caliber. No discrete pancreatic focal mass or calcification or peripancreatic inflammatory changes seen. SPLEEN: Unremarkable. ADRENAL GLANDS: Unremarkable. KIDNEYS AND URETERS: The kidneys are normal in size, shape, and attenuation. No hydronephrosis, hydroureter, or calculi seen. No perinephric stranding. BLADDER: Unremarkable. GASTROINTESTINAL TRACT: Significant fecal residual is noted within the large bowel predominantly within the right-sided colon. No definite colonic wall thickening or pericolonic inflammatory changes are noted within the left-sided colon. A tubular blind-ending structure is identified at the right lower quadrant of the abdomen, measures 1.6 cm at its maximum anteroposterior dimension associated with multiple intraluminal calcification seen proximally within the lumen (422:4 and 35:5). No significant inflammatory changes are noted. The findings are consistent with distended appendix with proximal appendicolith. In the appropriate clinical setting, the finding would be consistent with early uncomplicated acute appendicitis. The small bowel loops are decompressed. The stomach is decompressed. ABDOMINAL WALL: No significant hernia is appreciated. LYMPH NODES: Normal. VASCULAR: Mild diffuse atherosclerotic disease of the aorta and is branches without aneurysm formation. PELVIC VISCERA: The prostate is enlarged, protruding into the base of the bladder, measures approximately 6.4 x 4.0 cm at its maximum transverse by anteroposterior dimension. Specific note is made of a hyperdense nodule protruding into the base of the bladder. No evidence of any free fluid and/or free air. OSSEOUS STRUCTURES: Marked diffuse osteopenia and superimposed moderate to severe mid to anterior compression fracture of T12 vertebral body, of indeterminate etiology and chronicity. CT/CT abdomen pelvis w con IMPRESSION: 1. No CT evidence of any bowel wall thickening or pericolonic inflammatory changes identified within the left hemiabdomen. 2. Note is made of distended appendix measuring 1.6 cm at its maximum anteroposterior dimension associated with appendicolith without any CT features of periappendiceal inflammation. The findings may represent chronic changes versus early subtle changes of acute uncomplicated appendicitis. Clinical correlation is recommended. 3. Enlarged prostate. 4. Marked diffuse osteopenia and superimposed moderate to severe mid to anterior compression fracture of T12 vertebral body, indeterminate etiology and chronicity.
[2021-07-15 07:25] VITALS: BP 125/73; PULSE 71; RESP 18; TEMP 36.7; O2SAT 97; BMI 21.9
--- NOTE | 2021-07-15 07:53 | ECG_ITS ---
Test Reason : abdominal pain Blood Pressure : / mmHG Vent. Rate : 064 BPM Atrial Rate : 064 BPM P-R Int : 164 ms QRS Dur : 092 ms QT Int : 422 ms P-R-T Axes : 044 026 012 degrees QTc Int : 435 ms Normal sinus rhythm Normal ECG When compared with ECG of 10-APR-2021 08:13, No significant change was found Referred By: Carina Chavez Electronically Signed By:SHO MCCULLOUGH MD
--- NOTE | 2021-07-15 07:53 | PC.NURSE ---
Pt comes in with daughter and son in law, son in law was diplomatic interpreter/translator as [employer] unable to connect to [facility] diplomatic interpreter/translator. Pt c/o bilateral upper abd pain since midnight with one episode of vomiting and diarrhea. Pt is A&Ox3, LCA, NSR, abd soft, TTP in upper quadrants only, + BS at this time. Plan for CT scan, labs and IV medication. Family at bedside, call perry within reach, will continue to monitor.
--- NOTE | 2021-07-15 07:55 | ED.ABDPAIN ---
HPI - Abdominal Pain General Chief Complaint: Abdominal Pain Stated Complaint: Abd pain/vomiting Time Seen by Provider: 07/15/21 07:25 Source: patient and family Mode of arrival: ambulatory Limitations: language barrier (Mandarin speaking) History of Present Illness HPI narrative: Patient comes to the emergency room complaining of left lower quadrant pain. Patient states it started approximately at midnight, 7-1/2 hours ago. Patient states that the pain is constant, now it is radiating towards the upper quadrant and epigastrium. Patient states that he has 1 episode vomiting, no diarrhea, no fever chills. Patient has no prior surgical history in the abdomen. Patient is only Mandarin speaking. We attempted to get a Mandarin manager acquisition but none are available. Patient is here with his son-in-law and with his daughter. The daughter does not speak [place], the son-in-law offered to help translate and the patient agreed. Related Data Home Medications Medication Instructions Recorded Confirmed ascorbic acid 125 mg-collagen, 1 cap PO DAILY 04/10/21 04/10/21 hydrolyzed 740 mg capsule (Collagen Plus Vitamin C) ubidecarenone-omega 3-vit E 50 1 cap PO DAILY 04/10/21 04/10/21 mg-300 (180-120)mg-30 unit capsule Previous Rx's Medication Instructions Recorded aspirin 81 mg tablet,delayed 81 mg PO DAILY 30 Days #30 tab 04/11/21 release atorvastatin 80 mg tablet 80 mg PO BEDTIME 30 Days #30 tab 04/11/21 Allergies Allergy/AdvReac Type Severity Reaction Status Date / Time No Known Allergies Allergy Verified 07/15/21 07:24 Review of Systems Review of Systems Constitutional : No Weight loss, No Fever, No Chills, No Night Sweats, No Fatigue, No Malaise ENT/Mouth : No Hearing loss, No Ear Pain, No Nasal Congestion, No Sinus Pain, No Hoarseness, No sore throat, No Rhinorrhea, No Swallowing Difficulty Eyes: No Eye Pain, No Swelling, No Redness, No Foreign Body, No Discharge, No Vision Changes Cardiovascular : No Chest Pain, No SOB, No Dyspnea on Exertion, No Orthopnea, No Edema, No Palpitations Respiratory : No Cough, No Sputum, No Wheezing, No Smoke Exposure, No Dyspnea Gastrointestinal : 1 episode of vomiting this morning No Diarrhea, No Constipation, complaining of left lower quadrant pain, constant, radiating towards the left upper quadrant and epigastrium. No Hematochezia, No Melena Genitourinary : no irregular bleeding, No Dysuria, No Urinary Frequency, No Hematuria, No Urinary Incontinence, No Urgency, No Flank Pain, No Urinary Flow Changes, No Hesitancy Musculoskeletal : No joint pain, No Myalgias, No Joint Swelling Skin : No Skin Lesions, No rash Neuro : No Weakness, No Numbness, No Paresthesias, No Loss of Consciousness, No Dizziness, No Headache Psych : No Anxiety/Panic, No Depression, No SI/HI/AH/VH, No Social Issues, Heme/Lymph: No Bruising, No Bleeding,No Lymphadenopathy Endocrine : No Polyuria, No Polydipsia, No Temperature Intolerance Physical Exam Vital Signs: Vital Signs: Last Vital Signs Temp 98.3 F 07/15/21 11:21 Pulse 63 07/15/21 11:21 Resp 17 07/15/21 11:21 BP 117/63 07/15/21 11:21 Pulse Ox 96 07/15/21 11:21 BMI result Body Mass Index 21.9 Appearance: Alert. Oriented X3. No acute distress. Eyes: Pupils equal, round and reactive to light. ENT: Pharynx normal. Neck: Normal inspection. Neck supple. No lymph nodes noted. No crepitus CVS: Normal heart rate and rhythm. Pulses normal. Normal S1 and S2 Respiratory: No respiratory distress. Breath sounds normal. No Wheezing. No rales Abdomen: Soft , tenderness to palpation over the left lower quadrant, left upper quadrant, mild discomfort over the epigastric area, no rebound, no guarding. No rigidity. No distention. Skin: Skin warm and dry. Normal skin color. Normal skin turgor. Extremities: No lower extremity edema. No Lacerations. No Rash Neuro: Oriented X 3. No motor deficit. No sensory deficit. Moving all extermities. No slurred speech. Course Course Course Narrative: I discussed the CT scan findings with Dr. Edmond, at this time emergent appendectomy is not indicated. However, patient may need to follow-up with surgery and is possible that an appendectomy can be scheduled due to the size and the appendicolith that is present. I p.o. challenging patient, patient keeps vomiting, I discussed the patient with nurse practitioner Pavel, patient being admitted for intractable vomiting and pain MDM - Abdominal Pain Lab Data Result diagrams: 07/15/21 08:09 07/15/21 08:09 Labs: Lab Results 07/15/21 07/15/21 07/15/21 Range/Units 08:09 08:09 08:09 WBC 7.1 (4.8-10.8) X10*3/uL RBC 4.08 L (4.60-5.80) X10*6/uL Hgb 13.0 L (14.0-18.0) g/dl Hct 38.8 L (42.0-52.0) % MCV 95.1 (80.0-98.0) fL MCH 31.9 (27.0-33.0) pg MCHC 33.5 (31.0-36.0) g/dl RDW 13.0 (11.0-16.0) % Plt Count 154 L (160-400) X10*3/uL MPV 11.1 (9.4-12.4) fL Immature Gran % (Auto) 0.3 (0.0-0.4) % Neut % (Auto) 85.8 H (45-73) % Lymph % (Auto) 10.1 L (20-40) % [place] % (Auto) 3.6 (2-11) % Eos % (Auto) 0.1 (0-4) % Baso % (Auto) 0.1 (0-2) % Lymph # (Auto) 0.7 L (1.2-4.9) X10*3/uL [place] # (Auto) 0.3 (0.1-1.2) X10*3/uL Eos # (Auto) 0.0 (0.0-0.4) X10*3/uL Baso # (Auto) 0.0 (0.0-0.2) X10*3/uL Abs Immat Gran (auto) 0.02 (0.00-0.03) X10*3/uL Absolute Neuts (auto) 6.1 (2.0-8.3) x10*3/uL Absolute Nucleated RBC 0.000 (0.0-0.012) X10*3/uL Nucleated RBC % (auto) 0.0 (0.0-0.2) /100WBC PT 12.0 (9.9-13.0) SEC INR 1.1 (0.9-1.1) Sodium 136 (135-145) mmol/L Potassium 4.7 (3.3-5.1) mmol/L Chloride 107 (96-108) mmol/L Carbon Dioxide 22 (22-29) mmol/L Anion Gap 12 (12-20) BUN 17 H (9-16) mg/dL Creatinine 0.76 (0.5-1.4) mg/dL Estim Creat Clear Calc 69.6 Estimated GFR > 60 Random Glucose 102 (60-115) mg/dL Lactic Acid (0.5-2.0) mmol/L Calcium 9.2 D (8.4-10.2) mg/dL Total Bilirubin 0.7 (0.0-1.0) mg/dL Direct Bilirubin 0.3 (0.0-0.5) mg/dL AST 194 H (5-37) U/L ALT 425 H (0-40) U/L Alkaline Phosphatase 136 H D (39-117) U/L Total Protein 6.7 (6.5-8.0) g/dL Albumin 3.9 (3.5-5.0) g/dL Lipase 9 (8-78) U/L Urine Color Urine Appearance Urine pH (5.0-8.0) Ur Specific [place] (1.005-1.025) Urine Protein (NEG-TRACE) MG/DL Urine Glucose (UA) (NEG) MG/DL Urine Ketones (NEG) MG/DL Urine Blood (NEG) Urine Nitrite (NEG) Ur Leukocyte Esterase (NEG) Urine RBC (0) /HPF Urine WBC (0-4) /HPF Ur Squamous Epith Cells /LPF Amorphous Sediment /LPF Urine Bacteria /LPF Urine Mucus /LPF COVID-19 (OTILIA) (Negative) COVID-19 Clin Com 07/15/21 07/15/21 07/15/21 Range/Units 08:09 08:09 09:16 WBC (4.8-10.8) X10*3/uL RBC (4.60-5.80) X10*6/uL Hgb (14.0-18.0) g/dl Hct (42.0-52.0) % MCV (80.0-98.0) fL MCH (27.0-33.0) pg MCHC (31.0-36.0) g/dl RDW (11.0-16.0) % Plt Count (160-400) X10*3/uL MPV (9.4-12.4) fL Immature Gran % (Auto) (0.0-0.4) % Neut % (Auto) (45-73) % Lymph % (Auto) (20-40) % [place] % (Auto) (2-11) % Eos % (Auto) (0-4) % Baso % (Auto) (0-2) % Lymph # (Auto) (1.2-4.9) X10*3/uL [place] # (Auto) (0.1-1.2) X10*3/uL Eos # (Auto) (0.0-0.4) X10*3/uL Baso # (Auto) (0.0-0.2) X10*3/uL Abs Immat Gran (auto) (0.00-0.03) X10*3/uL Absolute Neuts (auto) (2.0-8.3) x10*3/uL Absolute Nucleated RBC (0.0-0.012) X10*3/uL Nucleated RBC % (auto) (0.0-0.2) /100WBC PT (9.9-13.0) SEC INR (0.9-1.1) Sodium (135-145) mmol/L Potassium (3.3-5.1) mmol/L Chloride (96-108) mmol/L Carbon Dioxide (22-29) mmol/L Anion Gap (12-20) BUN (9-16) mg/dL Creatinine (0.5-1.4) mg/dL Estim Creat Clear Calc Estimated GFR Random Glucose (60-115) mg/dL Lactic Acid 0.8 (0.5-2.0) mmol/L Calcium (8.4-10.2) mg/dL Total Bilirubin (0.0-1.0) mg/dL Direct Bilirubin (0.0-0.5) mg/dL AST (5-37) U/L ALT (0-40) U/L Alkaline Phosphatase (39-117) U/L Total Protein (6.5-8.0) g/dL Albumin (3.5-5.0) g/dL Lipase (8-78) U/L Urine Color YELLOW Urine Appearance CLEAR Urine pH 7.0 (5.0-8.0) Ur Specific [place] 1.025 (1.005-1.025) Urine Protein 1+ H (NEG-TRACE) MG/DL Urine Glucose (UA) NEG (NEG) MG/DL Urine Ketones >=80 (NEG) MG/DL Urine Blood NEG (NEG) Urine Nitrite NEG (NEG) Ur Leukocyte Esterase NEG (NEG) Urine RBC 0-2 (0) /HPF Urine WBC 0-2 (0-4) /HPF Ur Squamous Epith Cells NONE /LPF Amorphous Sediment 1+ /LPF Urine Bacteria NONE /LPF Urine Mucus 1+ /LPF COVID-19 (OTILIA) Negative (Negative) COVID-19 Clin Com See Note Imaging Data CT scan - abdomen: Radiologist's impression: FINDINGS: LUNG BASES: Significant motion artifacts are present, grossly unremarkable.? LIVER, GALLBLADDER, AND BILIARY TREE: The liver is normal in size, shape, and attenuation. Curvilinear calcification is noted within the left lobe of the liver (208:4). No biliary ductal dilatation is present. The gallbladder is unremarkable with no evidence of radiopaque gallstones, gallbladder wall thickening, or obvious pericholecystic inflammatory changes.? PANCREAS: The pancreatic duct is visualized however, by measurement is normal in caliber. No discrete pancreatic focal mass or calcification or peripancreatic inflammatory changes seen.? SPLEEN: Unremarkable.? ADRENAL GLANDS: Unremarkable.? KIDNEYS AND URETERS: The kidneys are normal in size, shape, and attenuation. No hydronephrosis, hydroureter, or calculi seen. No perinephric stranding. ? BLADDER: Unremarkable.? GASTROINTESTINAL TRACT: Significant fecal residual is noted within the large bowel predominantly within the right-sided colon. No definite colonic wall thickening or pericolonic inflammatory changes are noted within the left-sided colon. A tubular blind-ending structure is identified at the right lower quadrant of the abdomen, measures 1.6 cm at its maximum anteroposterior dimension associated with multiple intraluminal calcification seen proximally within the lumen (422:4 and 35:5). No significant inflammatory changes are noted. The findings are consistent with distended appendix with proximal appendicolith. In the appropriate clinical setting, the finding would be consistent with early uncomplicated acute appendicitis. The small bowel loops are decompressed. The stomach is decompressed. ABDOMINAL WALL: No significant hernia is appreciated.? LYMPH NODES: Normal. VASCULAR: Mild diffuse atherosclerotic disease of the aorta and is branches without aneurysm formation. PELVIC VISCERA: The prostate is enlarged, protruding into the base of the bladder, measures approximately 6.4 x 4.0 cm at its maximum transverse by anteroposterior dimension. Specific note is made of a hyperdense nodule protruding into the base of the bladder. No evidence of any free fluid and/or free air. OSSEOUS STRUCTURES: Marked diffuse osteopenia and superimposed moderate to severe mid to anterior compression fracture of T12 vertebral body, of indeterminate etiology and chronicity.? CT/CT abdomen pelvis w con IMPRESSION: ? 1. No CT evidence of any bowel wall thickening or pericolonic inflammatory changes identified within the left hemiabdomen. 2. Note is made of distended appendix measuring 1.6 cm at its maximum anteroposterior dimension associated with appendicolith without any CT features of periappendiceal inflammation. The findings may represent chronic changes versus early subtle changes of acute uncomplicated appendicitis. Clinical correlation is recommended.? 3. Enlarged prostate. 4. Marked diffuse osteopenia and superimposed moderate to severe mid to anterior compression fracture of T12 vertebral body, indeterminate etiology and chronicity. Discharge Plan Discharge Clinical Impression: Intractable vomiting, Abdominal pain Patient Disposition: Admitted As Inpatient Prescriptions: No Action ubidecarenone-omega 3-vit E 50-300-30 mg-mg-unit Capsule 1 cap PO DAILY RF: 0 Collagen Plus Vitamin C 125-740 mg Capsule 1 cap PO DAILY RF: 0 atorvastatin 80 mg Tablet 80 mg PO BEDTIME 30 Days Qty: 30 RF: 0 aspirin 81 mg Tablet,Delayed Release (Dr/Ec) 81 mg PO DAILY 30 Days Qty: 30 RF: 0 PMFSH Past Medical History Medical History CAD (coronary artery disease) CVA (cerebral vascular accident) No known health problems Surgical History No significant past surgical history Family History Family History (Updated 04/10/21 @ 13:03 by Terence Rader MD) Other CAD (coronary artery disease) Social History Social History (Updated 04/10/21 @ 13:02 by Terence Rader MD) Household Members: Family Housing: House Alcohol intake: never Patient Tobacco Use Status: Former Tobacco user Use of substances other than those prescribed or required for medical reasons: No Advance Directives: No Advance Directives Information Provided: No service: No Current occupational status: unemployed
[2021-07-15 08:13] LABS: MANUAL DIFF FLAG NO
[2021-07-15] MEDS: ondansetron HCL 4 MG/2 ML VIAL IVPUSH (08:13)
[2021-07-15] MEDS: Morphine Sulfate 4 MG/ML CARTRIDGE IVPUSH ×2 (08:13→11:20)
[2021-07-15] MEDS: 0.9 % Sodium Chloride 1,000 ML 999 ML IVCONT (08:14)
[2021-07-15 08:17] LABS: Basophils Percent Auto 0.1 % (0-2); Eosinophils Percent Auto 0.1 % (0-4); Hematocrit 38.8 % (42.0-52.0); Imm Gran Abs Auto 0.02 X10*3/uL (0.00-0.03); Imm Gran Pct Auto 0.3 % (0.0-0.4); Lymphocytes Absolute Auto 0.7 X10*3/uL (1.2-4.9); Lymphocytes Percent Auto 10.1 % (20-40); Mean Corpuscular HGB Conc 33.5 g/dl (31.0-36.0); Mean Corpuscular Hemoglobin 31.9 pg (27.0-33.0); Mean Corpuscular Volume 95.1 fL (80.0-98.0); Mean Platelet Volume 11.1 fL (9.4-12.4); Monocytes Absolute Auto 0.3 X10*3/uL (0.1-1.2); Monocytes Percent Auto 3.6 % (2-11); Neutrophils Absolute Auto 6.1 x10*3/uL (2.0-8.3); Neutrophils Percent Auto 85.8 % (45-73); Platelet Count 154 X10*3/uL (160-400); Red Blood Count 4.08 X10*6/uL (4.60-5.80); White Blood Count 7.1 X10*3/uL (4.8-10.8)
[2021-07-15 08:23] LABS: INTERNATIONAL NORM RATIO 1.1 (0.9-1.1)
[2021-07-15 08:24] LABS: Lactic Acid 0.8 mmol/L (0.5-2.0)
[2021-07-15 08:32] LABS: COVID-19 Test Negative (Negative); IDNOW Serial# 9DD0AD1C
[2021-07-15 08:35] LABS: Alanine Aminotransferase 425 U/L (0-40); Albumin Level 3.9 g/dL (3.5-5.0); Alkaline Phosphatase 136 U/L (39-117); Anion Gap 12 (12-20); Aspartate Amino Transferase 194 U/L (5-37); Bilirubin Direct 0.3 mg/dL (0.0-0.5); Bilirubin Total 0.7 mg/dL (0.0-1.0); Blood Urea Nitrogen 17 mg/dL (9-16); Calcium 9.2 mg/dL (8.4-10.2); Carbon Dioxide 22 mmol/L (22-29); Chloride 107 mmol/L (96-108); Creatinine Clr Calc Pharmacy 69.6; Estimated Glomerular Filt Rate > 60; Glucose Random 102 mg/dL (60-115); Lipase 9 U/L (8-78); Potassium 4.7 mmol/L (3.3-5.1); Sodium 136 mmol/L (135-145); Total Protein 6.7 g/dL (6.5-8.0)
--- NOTE | 2021-07-15 09:19 | PC.NURSE ---
Fluids disconnected, pt resting comfortable at this time, urine collected and sent. Awaiting CT scan at this time.Call perry within reach.
[2021-07-15 09:34] LABS: Appearance Urine CLEAR; Color Urine YELLOW; Glucose Urine UA NEG (NEG); Leukocyte Esterase Urine NEG (NEG); Nitrite Urine NEG (NEG); Specific Gravity - Urine 1.025 (1.005-1.025); UACC Culture Trigger NO; Urine Blood NEG (NEG); Urine Ketones >=80 MG/DL (NEG); Urine Protein 1+ MG/DL (NEG-TRACE)
[2021-07-15 09:49] LABS: Amorphous Sediment Urine 1+ /LPF; Mucus Urine 1+ /LPF; RBC Urine 0-2 /HPF (0); WBC Urine 0-2 /HPF (0-4)
[2021-07-15] MEDS: iohexoL 350 MG/ML 100 ML INFUS..BTL 85 ML IV (10:11)
[2021-07-15 10:20] VITALS: BP 132/70; PULSE 73; RESP 16; O2SAT 97
[2021-07-15 11:21] VITALS: BP 117/63; PULSE 63; RESP 17; TEMP 36.8; O2SAT 96
--- NOTE | 2021-07-15 11:22 | PC.NURSE ---
patient ambulated to bathroom with daughter-steady gait, vitals obtained-vss, medicated for pain, will continue to monitor.
--- NOTE | 2021-07-15 12:12 | PC.NURSE ---
per provider request, pt given po challenge
[2021-07-15 13:47] VITALS: BP 139/68; PULSE 71; RESP 18; TEMP 36.8; O2SAT 94
--- NOTE | 2021-07-15 13:54 | P.HPHOSP_ITS ---
History of Present Illness Date of Service: 07/15/21 Attending physician on admission: Davide Ovalles 70-year-old Mandarin speaking man presenting with left upper quadrant abdominal pain with nausea, vomiting since yesterday. He denied fever, chills. He did report 2 episodes of diarrhea. The interview was conducted with the computer investment fund manager. His son and daughter were present. The patient denied any recent travel, sick contacts, recent illness. Prior to yesterday he had been in his usual state of health. He does have a history of pancreatitis in the past however abdominal CT is not showing this and lipase is negative. CT did show some inflammation of the appendix but not acute. Liver enzymes elevated at 194 AST, 425 ALT. No fever leukocytosis noted, other vital signs stable. In the ER he received IV fluids, morphine, Zofran and Compazine. He will be admitted to observation for intractable nausea and vomiting and abdominal pain. Review of Systems Review of Systems: Denies any recent fever chills or decrease in appetite respiratory denies any shortness of breath coverage production cardiovascular denied chest pain gastrointestinal see HPI genitourinary denies any dysuria frequency or hematuria musculoskeletal denies any joint pain or swelling neuropsych denies any weakness or seizures all other systems reviewed are negative [facility] Medical History (Updated 07/15/21 @ 14:25 by Sophy Zhao NP) CAD (coronary artery disease) CVA (cerebral vascular accident) No known health problems Family History (Updated 04/10/21 @ 13:03 by Terence Rader MD) Other CAD (coronary artery disease) Surgical History No significant past surgical history Social History (Updated 04/10/21 @ 13:02 by Terence Rader MD) Household Members: Family Housing: House Alcohol intake: never Patient Tobacco Use Status: Former Tobacco user Use of substances other than those prescribed or required for medical reasons: No Advance Directives: No Advance Directives Information Provided: No service: No Current occupational status: unemployed Meds Allergies Allergy/AdvReac Type Severity Reaction Status Date / Time No Known Allergies Allergy Verified 07/15/21 07:24 Active Medications: Current Medications Acetaminophen (Acetaminophen 325 Mg Tablet) 325 mg PO Q6H PRN PRN Reason: Fever Famotidine (Famotidine/Pf 20 Mg/2 Ml Vial) 20 mg IVPUSH BID TEE Heparin Sodium (Porcine) (Heparin Sodium,Porcine 5,000 Unit/Ml Vial) 5,000 unit SUBCUT Q12H [facility] Dextrose/Sodium Chloride (D5ns) 1,000 mls @ 100 mls/hr IVCONT .Q10H [facility] Pharmacy Consult (Consult Rx Perform Med Rec) 1 each MISCELLANE ONCE PRN PRN Reason: Consult order Sodium Chloride (0.9 % Sodium Chloride Flush 3 Ml Syringe) 3 ml IVFLUSH QSHIFT [facility] Physical Exam Vital Signs and Narrative: Vital Signs: Last Vital Signs Temp 98.3 F 07/15/21 11:21 Pulse 63 07/15/21 11:21 Resp 17 07/15/21 11:21 BP 117/63 07/15/21 11:21 Pulse Ox 96 07/15/21 11:21 BMI result Body Mass Index 21.9 Appearing in no acute distress head is normocephalic atraumatic eyes pupils are PERRLA sclera is anicteric mouth throat mucous membranes are intact and moist neck is supple no lymphadenopathy, no JVD noted lung sounds are clear to auscultation heart regular rate rhythm, clear S1, S2 positive bowel sounds, LUQ tenderness neuro patient is alert x3, no focal deficits Results Labs CBC and Chem 7: 07/15/21 08:09 07/15/21 08:09 Labs: Laboratory Results - last 24 hr 07/15/21 07/15/21 07/15/21 08:09 08:09 08:09 MCV 95.1 MCH 31.9 MCHC 33.5 RDW 13.0 Plt Count 154 L MPV 11.1 Immature Gran % (Auto) 0.3 Neut % (Auto) 85.8 H Lymph % (Auto) 10.1 L [place] % (Auto) 3.6 Eos % (Auto) 0.1 Baso % (Auto) 0.1 Lymph # (Auto) 0.7 L [place] # (Auto) 0.3 Eos # (Auto) 0.0 Baso # (Auto) 0.0 Abs Immat Gran (auto) 0.02 Absolute Neuts (auto) 6.1 Absolute Nucleated RBC 0.000 Nucleated RBC % (auto) 0.0 PT 12.0 INR 1.1 Anion Gap 12 Estim Creat Clear Calc 69.6 Estimated GFR > 60 Random Glucose 102 Lactic Acid Calcium 9.2 D Total Bilirubin 0.7 Direct Bilirubin 0.3 AST 194 H ALT 425 H Alkaline Phosphatase 136 H D Total Protein 6.7 Albumin 3.9 Lipase 9 Urine Color Urine Appearance Urine pH Ur Specific [place] Urine Protein Urine Glucose (UA) Urine Ketones Urine Blood Urine Nitrite Ur Leukocyte Esterase Urine RBC Urine WBC Ur Squamous Epith Cells Amorphous Sediment Urine Bacteria Urine Mucus COVID-19 (OTILIA) COVID-19 Clin Com 07/15/21 07/15/21 07/15/21 08:09 08:09 09:16 MCV MCH MCHC RDW Plt Count MPV Immature Gran % (Auto) Neut % (Auto) Lymph % (Auto) [place] % (Auto) Eos % (Auto) Baso % (Auto) Lymph # (Auto) [place] # (Auto) Eos # (Auto) Baso # (Auto) Abs Immat Gran (auto) Absolute Neuts (auto) Absolute Nucleated RBC Nucleated RBC % (auto) PT INR Anion Gap Estim Creat Clear Calc Estimated GFR Random Glucose Lactic Acid 0.8 Calcium Total Bilirubin Direct Bilirubin AST ALT Alkaline Phosphatase Total Protein Albumin Lipase Urine Color YELLOW Urine Appearance CLEAR Urine pH 7.0 Ur Specific [place] 1.025 Urine Protein 1+ H Urine Glucose (UA) NEG Urine Ketones >=80 Urine Blood NEG Urine Nitrite NEG Ur Leukocyte Esterase NEG Urine RBC 0-2 Urine WBC 0-2 Ur Squamous Epith Cells NONE Amorphous Sediment 1+ Urine Bacteria NONE Urine Mucus 1+ COVID-19 (OTILIA) Negative COVID-19 Clin Com See Note Imaging Radiologist's Impressions: Impressions Abdomen/Pelvis CT 07/15/21 10:[address]: [address] evidence of any bowel wall thickening or pericolonic inflammatory changes identified within the left hemiabdomen. 2. Note is made of distended appendix measuring 1.6 cm at its maximum anteroposterior dimension associated with appendicolith without any CT features of periappendiceal inflammation. The findings may represent chronic changes versus early subtle changes of acute uncomplicated appendicitis. Clinical correlation is recommended. 3. Enlarged prostate. 4. Marked diffuse osteopenia and superimposed moderate to severe mid to anterior compression fracture of T12 vertebral body, indeterminate etiology and chronicity. Assessment and Plan (1) Intractable vomiting: Status: Acute (2) Abdominal pain: Qualifiers: Abdominal location: left upper quadrant Qualified Code(s): R10.12 - Left upper quadrant pain Status: Acute (3) Transaminitis: Status: Acute 70-year-old man placed on observation for left upper quadrant pain with intractable nausea and vomiting. Intractable nausea vomiting with left quadrant pain. ? gastritis Abdominal CT showed no pancreatitis or acute cholecystitis, did show some appendix inflammation but not acute Will treat with IV Pepcid, IV fluids and clear liquid diet GI consultation for possible EGD Pain management Transaminitis. ? viral Negative COVID Check hepatitis panel IV fluids Trend History of coronary artery disease Hold aspirin and statin for now DVT prophylaxis with heparin Attending Dr. Ovalles Full code Quality Stroke Does the patient have a stroke diagnosis?: No VTE Prior VTE?: No VTE Risk Level:: Medical - moderate - high VTE Device Contraindication: Treatment Not Indicated VTE Drug Contraindication: N/A - Med Ordered
[2021-07-15] MEDS: Prochlorperazine Edisylate 10 MG/2 ML VIAL IVPUSH (14:04)
[2021-07-15] MEDS: Heparin Sodium,Porcine 5,000 UNIT/ML VIAL 5000 UNIT SUBCUT (14:05)
--- NOTE | 2021-07-15 14:11 | PC.NURSE ---
patient medicated for nausea per order, will start ivf after med has completed
[2021-07-15] MEDS: Dextrose 5 % and 0.9 % NaCl 1,000 ML 100 ML IVCONT (14:40)
--- NOTE | 2021-07-15 14:41 | PC.NURSE ---
patient a&ox3, vss, ivf started per order, family at bedside, will continue to monitor.
[2021-07-15 15:07] LABS: Hematocrit 36.8 % (42.0-52.0); Hemoglobin 12.3 g/dl (14.0-18.0); Mean Corpuscular HGB Conc 33.4 g/dl (31.0-36.0); Mean Corpuscular Hemoglobin 31.8 pg (27.0-33.0); Mean Corpuscular Volume 95.1 fL (80.0-98.0); Mean Platelet Volume 10.8 fL (9.4-12.4); Platelet Count 143 X10*3/uL (160-400); Red Blood Count 3.87 X10*6/uL (4.60-5.80); Red Cell Distribution Width 12.9 % (11.0-16.0); White Blood Count 8.6 X10*3/uL (4.8-10.8)
--- NOTE | 2021-07-15 16:00 | PC.NURSE ---
patient currently sleeping, ivf running per order, will continue to monitor.
--- NOTE | 2021-07-15 18:34 | P.CNGI_ITS ---
History of Present Illness Data of Consult Service Date: 07/15/21 Requesting physician: Davide Ovalles Primary Care Provider: None Physician HPI Reason for consult: abdominal pain ?70-year-old M with hx of CVA and CAD who I am seeing for assessment of abdominal pain. He was in his normal state of health when he had sudden onset of 10/10 LUQ and epigastric pain without radiation and now better with analgesia to 3/10 severity. Associated with x 1 episode of non bloody emesis and nasuea with poor appetite. He had few loose stools but no melena or rectal bleeding. He denies eating any raw foods, no ethiopian herbal meds, no nsaids. No recent travel or covid exposure. Labs with elevated LFT< and mild anemia. CT imaging with dilated appendix with fecolith in place, osteoporotic fracture and fecal loading of right colon. Review of Systems Review of Systems: Constitutional : No Weight loss, No Fever, No Chills ENT/Mouth : No sore throat, No Rhinorrhea Eyes: No Swelling, No Redness Cardiovascular : No Chest Pain, No SOB, No Edema Respiratory : No Cough, No Sputum, No Wheezing Gastrointestinal : see HPI Genitourinary : NO Dysuria, No Urinary Frequency, No Hematuria, No Urgency Musculoskeletal : No joint pain, No Myalgias, No Joint Swelling Skin : No Skin Lesions, No rash Neuro : No Weakness, No Numbness, No Dizziness, No Headache Psych : No Anxiety/Panic, No Depression Heme/Lymph: No Bruising, No Lymphadenopathy Endocrine : No Polyuria, No Polydipsia All other systems reviewed and are negative. [facility] Past Medical History Medical History CAD (coronary artery disease) CVA (cerebral vascular accident) No known health problems Family History Family History (Updated 04/10/21 @ 13:03 by Terence Rader MD) Other CAD (coronary artery disease) Surgical History Surgical History No significant past surgical history Social History Social History (Updated 04/10/21 @ 13:02 by Terence Rader MD) Household Members: Family Housing: House Alcohol intake: never Patient Tobacco Use Status: Former Tobacco user Use of substances other than those prescribed or required for medical reasons: No Advance Directives: No Advance Directives Information Provided: No service: No Current occupational status: unemployed Meds Allergies Allergy/AdvReac Type Severity Reaction Status Date / Time No Known Allergies Allergy Verified 07/15/21 07:24 Active Medications: Current Medications Acetaminophen (Acetaminophen 325 Mg Tablet) 325 mg PO Q6H PRN PRN Reason: Fever Famotidine (Famotidine/Pf 20 Mg/2 Ml Vial) 20 mg IVPUSH BID [facility] Heparin Sodium (Porcine) (Heparin Sodium,Porcine 5,000 Unit/Ml Vial) 5,000 unit SUBCUT Q12H [facility] Last Admin: 07/15/21 14:05 Dose: 5,000 unit Documented by: Dextrose/Sodium Chloride (D5ns) 1,000 mls @ 100 mls/hr IVCONT .Q10H [facility] Last Admin: 07/15/21 14:40 Dose: 100 mls/hr Documented by: Morphine Sulfate (Morphine Sulfate 2 Mg/Ml Cartridge) 2 mg IVPUSH Q4H PRN; Protocol PRN Reason: Pain, Mild (Pain Scale 1-3) Ondansetron HCl (Ondansetron Hcl 4 Mg/2 Ml Vial) 4 mg IVPUSH Q6H PRN PRN Reason: nausea and vomiting Pharmacy Consult (Consult Rx Perform Med Rec) 1 each MISCELLANE ONCE PRN PRN Reason: Consult order Sodium Chloride (0.9 % Sodium Chloride Flush 3 Ml Syringe) 3 ml IVFLUSH QSHIFT [facility] Last Admin: 07/15/21 14:47 Dose: Not Given Documented by: Physical Exam Vital Signs: Vital Signs: Last Vital Signs Temp 98.3 F 07/15/21 13:47 Pulse 71 07/15/21 13:47 Resp 18 07/15/21 13:47 BP 139/68 07/15/21 13:47 Pulse Ox 94 07/15/21 13:47 BMI result Body Mass Index 21.9 EXAM: GENERAL: The patient is thin VITAL SIGNS:see workflow HEENT: Nonicteric sclerae, PERRLA, EOMI. Oropharynx clear. Moist mucous membranes. Conjunctivae appear well perfused. No thyroid mass. CHEST: Chest wall is nontender. HEART: Regular rate and rhythm without murmurs. LUNGS: Clear to auscultation bilaterally. ABDOMEN: Soft, positive bowel sounds, tender LUQ and epigastrium, no organomegaly.no flank tenderness SKIN: No rash, no excessive bruising, petechiae, or purpura. NEUROLOGIC: Cranial nerves II-XII intact without motor/sensory deficit. Results Labs CBC & Chem 7: 07/15/21 14:59 07/15/21 08:09 Labs: Short CBC 07/15/21 07/15/21 Range/Units 08:09 14:59 WBC 7.1 8.6 (4.8-10.8) X10*3/uL Hgb 13.0 L 12.3 L (14.0-18.0) g/dl Hct 38.8 L 36.8 L (42.0-52.0) % Plt Count 154 L 143 L (160-400) X10*3/uL BMP 07/15/21 08:09 Sodium 136 Potassium 4.7 Chloride 107 Carbon Dioxide 22 BUN 17 H Creatinine 0.76 Calcium 9.2 D Liver Function 07/15/21 Range/Units 08:09 Total Bilirubin 0.7 (0.0-1.0) mg/dL Direct Bilirubin 0.3 (0.0-0.5) mg/dL AST 194 H (5-37) U/L ALT 425 H (0-40) U/L Alkaline Phosphatase 136 H D (39-117) U/L Albumin 3.9 (3.5-5.0) g/dL Urine 07/15/21 Range/Units 09:16 Urine Color YELLOW Urine Appearance CLEAR Urine pH 7.0 (5.0-8.0) Ur Specific Mona 1.025 (1.005-1.025) Urine Protein 1+ H (NEG-TRACE) MG/DL Urine Glucose (UA) NEG (NEG) MG/DL Assessment and Plan (1) Abdominal pain: Qualifiers: Abdominal location: left upper quadrant Qualified Code(s): R10.12 - Left upper quadrant pain Status: Acute (2) Transaminitis: Status: Acute 1/ Acute abdominal pain with an LFT, wide differential, incl microlithiasis, passed CBD stone, SOD, budd chiari, viral hepatitis, autoimmune hepatitis, intrahepatic or CBD lesion, PUD, vascular compression syndrome or mesenteric ischemia 2/ Dilated appendix with fecolith, uncertain role of this in current presentation, would not be expected to cause LUQ pain and abn LFT unless portal thrombophlebitis from infection or liver abscess PLAN: 1/ Viral hep screen, lotus for Hep B< CMV< HSV 2/ MRI of liver, 3/ if neg then EGD 4/possibly repeat CT in 48 hrs or US to re evaluate appendix 5/ allow PO diet if tolerated Procedures Date of Service Date of Service: 07/15/21
[2021-07-15 19:43] LABS: Amylase 81 U/L (28-100); Iron 73 mcg/dL (45-160); Percent Iron Saturation 29 % (15-50); Total Iron Binding Capacity 249 mcg/dL (228-428); Unsaturated Iron Binding 176 ug/dL
[2021-07-15 20:03] LABS: Ferritin 222 ng/mL (20-250)
[2021-07-15 20:20] LABS: Folate 13.1 ng/mL (> or = 4.0); Vitamin B12 727 pg/mL (200-900)
--- NOTE | 2021-07-15 20:38 | PC.NURSE ---
patient sleeping, woke to verbal stimulus, patients family at bedside, pt states he has on and off pain up to about a 3, pt is refusing pain medication at this time, will continue to monitor.
[2021-07-15] MEDS: Famotidine/PF 20 MG/2 ML VIAL IVPUSH (20:48)
--- NOTE | 2021-07-15 21:57 | PC.NURSE ---
patient alert & oriented, clinical esthetician nsr 70s, family at bedside, pt has pain but is refusing pain meds at this time, call perry within reach, will continue to monitor.
[2021-07-16] MEDS: Dextrose 5 % and 0.9 % NaCl 1,000 ML 100 ML IVCONT ×3 (00:15→23:07)
[2021-07-16] MEDS: Morphine Sulfate 2 MG/ML CARTRIDGE IVPUSH (00:35)
[2021-07-16] MEDS: Heparin Sodium,Porcine 5,000 UNIT/ML VIAL 5000 UNIT SUBCUT ×2 (03:00→14:55)
[2021-07-16 05:54] VITALS: BP 139/77; PULSE 62; RESP 14; TEMP 36.8; O2SAT 97
[2021-07-16 09:04] VITALS: BP 144/65; PULSE 71; TEMP 36.9; O2SAT 98
[2021-07-16] MEDS: 0.9 % Sodium Chloride Flush 3 ML SYRINGE IVFLUSH (09:12)
[2021-07-16] MEDS: Famotidine/PF 20 MG/2 ML VIAL IVPUSH ×2 (09:12→22:02)
--- NOTE | 2021-07-16 09:13 | PC.NURSE ---
alert, nad, no complaints, no pain, no n/v, mri complete, family interpreted
--- NOTE | 2021-07-16 09:17 | MHC.CM.PN ---
this interview was conducted through patient's son who is at the bedside. pt lives c his son and daughter in law in their home. he enjoys playing c his grandchildren. he is independent in his care, but the son and daughter help him c any needs he may have. this includes transportation , including a ride home [place]. pt denies the need for vna at [place]. pt relatively recently got [employer], however pt does not have a PCP, he has been trying to get an appt. at the [facility] and retain a pcp there. a task has been made to the cm office to try to help pt secure this appt. dc plan is for patient to return home c his adult children. cm to cont. to follow.
[2021-07-16 09:18] LABS: HIV AB/AG Nonreactive (Nonreactive); HIV Num 1 0.06 S/CO (0.00-0.99)
--- NOTE | 2021-07-16 09:27 | MHC.CM.PN ---
this interview was conducted through patient's son who is at the bedside. pt lives c his son and daughter in law in their home. he enjoys playing c his grandchildren. pt does not use any AD c ambulation and has no svcs in the home. he is independent in his care, but the son and daughter help him c any needs he may have. this includes transportation , including [place]. pt [place] the need [place]na at [place]. pt relatively recently got [employer], however pt does not have a PCP, he has been trying to get an appt. at the [facility] and retain a pcp there. a task has been made to the cm office to try to help pt secure this appt. dc plan is for patient to return home c his adult children. cm to cont. to follow.
[2021-07-16 10:26] LABS: Hematocrit 38.7 % (42.0-52.0); Hemoglobin 12.7 g/dl (14.0-18.0); Mean Corpuscular HGB Conc 32.8 g/dl (31.0-36.0); Mean Corpuscular Hemoglobin 31.7 pg (27.0-33.0); Mean Corpuscular Volume 96.5 fL (80.0-98.0); Mean Platelet Volume 11.2 fL (9.4-12.4); Platelet Count 148 X10*3/uL (160-400); Red Blood Count 4.01 X10*6/uL (4.60-5.80); Red Cell Distribution Width 13.2 % (11.0-16.0)
[2021-07-16 10:49] LABS: Alanine Aminotransferase 339 U/L (0-40); Albumin Level 3.6 g/dL (3.5-5.0); Alkaline Phosphatase 117 U/L (39-117); Anion Gap 10 (12-20); Aspartate Amino Transferase 130 U/L (5-37); Bilirubin Direct 0.4 mg/dL (0.0-0.5); Bilirubin Total 0.9 mg/dL (0.0-1.0); Blood Urea Nitrogen 9 mg/dL (9-16); Chloride 108 mmol/L (96-108); Creatinine Clr Calc Pharmacy 70.5; Estimated Glomerular Filt Rate > 60; Glucose Random 98 mg/dL (60-115); Sodium 140 mmol/L (135-145)
[2021-07-16 10:54] LABS: Calcium 8.7 mg/dL (8.4-10.2); Carbon Dioxide 27 mmol/L (22-29); Potassium 3.7 mmol/L (3.3-5.1)
[2021-07-16 11:08] LABS: HBS Num1 > 1000.00 mIU/mL (0-7.99); HBc Num1 8.78 S/CO (0.00-0.79); HBsAGNum1 0.26 S/CO (0.00-0.99); Hepatitis B Surface Antigen Negative (Negative); ~HepC Num1 0.16 S/CO (0.00-0.79); ~Hepatitis B Surface Antibody REACTIVE (Nonreactive); ~Hepatitis C Antibody Nonreactive (Nonreactive)
[2021-07-16 11:15] LABS: Hepatitis A Antibody IgM 0.36 Index (0-0.79); ~Hepatitis A Antibody IgM Nonreactive (Nonreactive)
--- NOTE | 2021-07-16 11:16 | HO.PM.IMPN ---
Subjective Subjective Date of Service: 07/16/21 Interval History: seen and examined this AM after MRI son-in-law and daughter bedside son-in-law translates pt reports middle and RLQ adominal pain this AM, only with deep palpation denies any pain at rest and no worsening of pain with orals this AM no nausea, vomiting, diarrhea reported Review of Systems negative except HPI Physical Exam Vital Signs: Vital Signs: Last Vital Signs Temp 98.5 F 07/16/21 09:04 Pulse 71 07/16/21 09:04 Resp 14 07/16/21 05:54 BP 144/65 H 07/16/21 09:04 Pulse Ox 98 07/16/21 09:04 BMI result Body Mass Index 21.9 Const: Other: General - no acute distress, appears comfortable Cardiovascular - regular rate and rhythm, S1-S2 Lungs - normal respiratory effort, clear to auscultation bilaterally, no wheezing Abdomen - soft with mild lower abd (R>L) TTP with deep palpation, no rebound or guarding Extremities - no edema bilaterally Neuro - awake and alert, no focal deficits Objective Data Active Medications Acetaminophen (Acetaminophen 325 Mg Tablet) 325 mg PO Q6H PRN PRN Reason: Fever Famotidine (Famotidine/Pf 20 Mg/2 Ml Vial) 20 mg IVPUSH BID [facility] Last Admin: 07/16/21 09:12 Dose: 20 mg Documented by: TIMOTHY Heparin Sodium (Porcine) (Heparin Sodium,Porcine 5,000 Unit/Ml Vial) 5,000 unit SUBCUT Q12H [facility] Last Admin: 07/16/21 03:00 Dose: 5,000 unit Documented by: BECCA Dextrose/Sodium Chloride (D5ns) 1,000 mls @ 100 mls/hr IVCONT .Q10H [facility] Last Admin: 07/16/21 09:12 Dose: 100 mls/hr Documented by: TIMOTHY Morphine Sulfate (Morphine Sulfate 2 Mg/Ml Cartridge) 2 mg IVPUSH Q4H PRN; Protocol PRN Reason: Pain, Mild (Pain Scale 1-3) Last Admin: 07/16/21 00:35 Dose: 2 mg Documented by: BECCA Ondansetron HCl (Ondansetron Hcl 4 Mg/2 Ml Vial) 4 mg IVPUSH Q6H PRN PRN Reason: nausea and vomiting Pharmacy Consult (Consult Rx Perform Med Rec) 1 each MISCELLANE ONCE PRN PRN Reason: Consult order Sodium Chloride (0.9 % Sodium Chloride Flush 3 Ml Syringe) 3 ml IVFLUSH QSHIFT [facility] Last Admin: 07/16/21 09:12 Dose: 3 ml Documented by: TIMOTHY Labs CBC & Chem 7: 07/16/21 09:57 07/16/21 09:57 Labs: Laboratory Results - last 24 hr 07/15/21 07/15/21 07/15/21 14:59 19:04 19:04 MCV 95.1 MCH 31.8 MCHC 33.4 RDW 12.9 Plt Count 143 L MPV 10.8 Absolute Nucleated RBC 0.000 Nucleated RBC % (auto) 0.0 Anion Gap Estim Creat Clear Calc Estimated GFR Random Glucose Calcium Iron 73 TIBC 249 % Saturation 29 Unsat Iron Binding 176 Ferritin 222 Cancelled Total Bilirubin Direct Bilirubin AST ALT Alkaline Phosphatase Total Protein Albumin Amylase 81 Vitamin B12 Folate Hep Bs Antigen Hep Bs Antibody Hep B Core Total Ab HIV 1&2 Ab/P24 Ag 4thGn 07/15/21 07/15/21 07/16/21 19:04 19:24 09:57 MCV MCH MCHC RDW Plt Count MPV Absolute Nucleated RBC Nucleated RBC % (auto) Anion Gap Estim Creat Clear Calc Estimated GFR Random Glucose Calcium Iron TIBC % Saturation Unsat Iron Binding Ferritin Total Bilirubin Direct Bilirubin AST ALT Alkaline Phosphatase Total Protein Albumin Amylase Vitamin B12 727 Folate 13.1 Hep Bs Antigen Cancelled Hep Bs Antibody Cancelled Hep B Core Total Ab Cancelled HIV 1&2 Ab/P24 Ag 4thGn Nonreactive 07/16/21 07/16/21 09:57 09:57 MCV 96.5 MCH 31.7 MCHC 32.8 RDW 13.2 Plt Count 148 L MPV 11.2 Absolute Nucleated RBC 0.000 Nucleated RBC % (auto) 0.0 Anion Gap 10 L Estim Creat Clear Calc 70.5 Estimated GFR > 60 Random Glucose 98 Calcium 8.7 Iron TIBC % Saturation Unsat Iron Binding Ferritin Total Bilirubin 0.9 Direct Bilirubin 0.4 AST 130 H ALT 339 H Alkaline Phosphatase 117 Total Protein 6.0 L Albumin 3.6 Amylase Vitamin B12 Folate Hep Bs Antigen Hep Bs Antibody Hep B Core Total Ab HIV 1&2 Ab/P24 Ag 4thGn Microbiology Microbiology Results: Microbiology 07/15/21 08:28 Blood Culture - Preliminary Blood - Venous No growth after 24 hours. 07/15/21 08:09 Blood Culture - Preliminary Blood - Venous No growth after 24 hours. Assessment and Plan (1) Transaminitis: Status: Acute (2) Abdominal pain: Status: Acute Assessment and Plan: This is a 70 M with a PMH of CAD, CVA who presents to the hospital with sudden onset abdominal pain with associated vomiting and diarrhea. He has abnormalities on CT scan and abnormal transaminaes for which is under going workup. 1. Abdominal pain presented with LLQ pain, now mid lower region / RLQ CT showing ? chronic appendiceal inflammation -- await MRI results; may need surgical evaluation continue with IV Pepcid GI on board 2. Transaminitis serologic work up in progress down-trending hold lipitor 3. CVA/CAD hold antiplatelet, restart once surgical/endoscopic eval not needed Full Code DVT pptx, low risk Quality Stroke Does the patient have a stroke diagnosis?: No VTE Prior VTE?: No VTE Risk Level:: Medical - moderate - high VTE Device Contraindication: Treatment Not Indicated VTE Drug Contraindication: N/A - Med Ordered
[2021-07-16 12:45] LABS: HBc Num3 9.62 S/CO; Hepatitis B Core Antibody Reactive (Nonreactive)
[2021-07-16 14:47] VITALS: BP 130/69; PULSE 63; RESP 16; TEMP 36.2; O2SAT 97
[2021-07-16 22:51] VITALS: BP 143/68; PULSE 66; RESP 16; TEMP 36.2; O2SAT 98
[2021-07-17] VITALS (15 sets, daily range): BP systolic 119–158; BP diastolic 64–81; PULSE 57–75; RESP 8–18; TEMP 36.6–37.1; O2SAT 91–100
[2021-07-17] MEDS: Heparin Sodium,Porcine 5,000 UNIT/ML VIAL 5000 UNIT SUBCUT (06:22)
[2021-07-17 08:40] LABS: MANUAL DIFF FLAG NO
[2021-07-17] MEDS: Piperacillin Sodium/Tazobactam 3.375 GM in 0.9 % Sodium Chloride 50 ML IV ×3 (08:54→19:40)
[2021-07-17] MEDS: Famotidine/PF 20 MG/2 ML VIAL IVPUSH ×2 (08:54→19:40)
[2021-07-17] MEDS: 0.9 % Sodium Chloride Flush 3 ML SYRINGE IVFLUSH (08:54)
[2021-07-17 08:58] LABS: Anion Gap 11 (12-20); Basophils Percent Auto 0.4 % (0-2); Blood Urea Nitrogen 6 mg/dL (9-16); Calcium 8.4 mg/dL (8.4-10.2); Carbon Dioxide 24 mmol/L (22-29); Chloride 110 mmol/L (96-108); Creatinine Clr Calc Pharmacy 74.5; Eosinophils Percent Auto 0.6 % (0-4); Estimated Glomerular Filt Rate > 60; Glucose Random 100 mg/dL (60-115); Hematocrit 35.9 % (42.0-52.0); Hemoglobin 11.8 g/dl (14.0-18.0); Imm Gran Abs Auto 0.01 X10*3/uL (0.00-0.03); Imm Gran Pct Auto 0.2 % (0.0-0.4); Lymphocytes Percent Auto 21.8 % (20-40); Mean Corpuscular HGB Conc 32.9 g/dl (31.0-36.0); Mean Corpuscular Hemoglobin 31.4 pg (27.0-33.0); Mean Corpuscular Volume 95.5 fL (80.0-98.0); Mean Platelet Volume 11.4 fL (9.4-12.4); Monocytes Absolute Auto 0.5 X10*3/uL (0.1-1.2); Neutrophils Absolute Auto 3.1 x10*3/uL (2.0-8.3); Platelet Count 129 X10*3/uL (160-400); Potassium 3.5 mmol/L (3.3-5.1); Red Blood Count 3.76 X10*6/uL (4.60-5.80); Sodium 141 mmol/L (135-145); White Blood Count 4.7 X10*3/uL (4.8-10.8)
--- NOTE | 2021-07-17 09:01 | PC.NURSE ---
Pt awake, A&Ox3, report to Sari in the OR. Upon talking to pt's son, pt states he does not want to have surgery, they are requesting to speak to the doctor. DR to be tiger texted. Pt up OOB to BR independantly. Medicated as per MAR order. Awaiting furthing orders. Daughter at bedside, will continue to monitor.
[2021-07-17] MEDS: Dextrose 5 % and 0.9 % NaCl 1,000 ML 100 ML IVCONT ×2 (10:00→16:21)
--- NOTE | 2021-07-17 10:09 | P.CONGS_ITS ---
History of Present Illness Consult details Consult date: 07/17/21 <Crystal Edwards PA-C - Last Filed: 07/17/21 13:05> Requesting physician: Terence Rader <MATEUSZ Huitron Last Filed: 07/17/21 13:05> Narrative: [facility] development coordinator via video call with [place] . Daughter present. 70 year old male with PMH including CAD, hx of MN, CVA who presented to the ED with complaints of epigastric abdominal pain. The pain was associated with nausea/vomiting and diarrhea. He presented to the ED and work up included a CT s can which showed no biliary pathology but did demonstrate a distended appendix measuring 1.6 cm with appendicolith suggesting early acute appendicitis. He was afebrile with a normal WBC count. He was however found to have elevated transaminases at that time. Yesterday morning, he reports the pain migrated to the RLQ. Subsequent abd MRI was performed at the recommendation of GI which further demonstrated the appendiceal distention, fecalith and wall thickening without biliary pathology. Surgery was asked to see the patient given his MRI results and RLQ pain. This morning he reports the pain is still present in the RLQ but not as bad with pain meds. He reports it does remain tender to touch. He denies further nausea, vomiting. <MATEUSZ Huitron Last Filed: 07/17/21 13:05> Review of Systems Constitutional: Constitutional: Denies chills, Denies fever(s) and Denies malaise <MATEUSZ Huitron Last Filed: 07/17/21 13:05> ENT: Denies dizziness <MATEUSZ Huitron Last Filed: 07/17/21 13:05> Cardiovascular: Cardiovascular: Denies chest pain and Denies dyspnea <MATEUSZ Huitron Last Filed: 07/17/21 13:05> Respiratory: Respiratory: Denies cough and Denies dyspnea <MATEUSZ Huitron Last Filed: 07/17/21 13:05> Gastrointestinal: Gastrointestinal: Reports as per HPI, Denies melena, Denies hematochezia, Denies change in bowel habits and Denies hematemesis <Crystal Edwards PA-C - Last Filed: 07/17/21 13:05> Genitourinary: Genitourinary: Denies hematuria and Denies dysuria <Crystal Edwards PA-C Last Filed: 07/17/21 13:05> Integumentary/Breasts: Skin/Breast: Denies rash and Denies jaundice <Crystal Edwards PA-C Last Filed: 07/17/21 13:05> Neurologic: Denies dizziness <Crystal Edwards PA-C Last Filed: 07/17/21 13:05> PMFSH Past Medical History Medical History: Medical History CAD (coronary artery disease) CVA (cerebral vascular accident) No known health problems <Crysatl Edwards PA-C Last Filed: 07/17/21 13:05> Family History Family History: Family History (Updated 04/10/21 @ 13:03 by Terence Rader MD) Other CAD (coronary artery disease) <Crystal Edwards PA-C Last Filed: 07/17/21 13:05> Surgical History Surgical History: Surgical History No significant past surgical history <Crystal Edwards PA-C Last Filed: 07/17/21 13:05> Social History Social History: Social History (Updated 04/10/21 @ 13:02 by Terence Rader MD) Household Members: Family Housing: House Alcohol intake: never Patient Tobacco Use Status: Former Tobacco user Use of substances other than those prescribed or required for medical reasons: No Advance Directives: No Advance Directives Information Provided: No service: No Current occupational status: retired <Crystal Edwards PA-C Last Filed: 07/17/21 13:05> Meds Allergies/Adverse reactions: Allergies Allergy/AdvReac Type Severity Reaction Status Date / Time No Known Allergies Allergy Verified 07/15/21 07:24 <MATEUSZ Huitron Last Filed: 07/17/21 13:05> Active Medications: Current Medications Acetaminophen (Acetaminophen 325 Mg Tablet) 325 mg PO Q6H PRN PRN Reason: Fever Famotidine (Famotidine/Pf 20 Mg/2 Ml Vial) 20 mg IVPUSH BID [facility] Last Admin: 07/17/21 08:54 Dose: 20 mg Documented by: Heparin Sodium (Porcine) (Heparin Sodium,Porcine 5,000 Unit/Ml Vial) 5,000 unit SUBCUT Q12H [facility] Last Admin: 07/17/21 06:22 Dose: 5,000 unit Documented by: Dextrose/Sodium Chloride (D5ns) 1,000 mls @ 100 mls/hr IVCONT .Q10H [facility] Last Admin: 07/17/21 10:00 Dose: 100 mls/hr Documented by: Piperacillin Sod/Tazobactam (Sod 3.375 gm/ Sodium Chloride) 50 mls @ 100 mls/hr IV Q6H [facility] Last Admin: 07/17/21 08:54 Dose: 100 mls/hr Documented by: Morphine Sulfate (Morphine Sulfate 2 Mg/Ml Cartridge) 2 mg IVPUSH Q4H PRN; Protocol PRN Reason: Pain, Mild (Pain Scale 1-3) Last Admin: 07/16/21 00:35 Dose: 2 mg Documented by: Ondansetron HCl (Ondansetron Hcl 4 Mg/2 Ml Vial) 4 mg IVPUSH Q6H PRN PRN Reason: nausea and vomiting Pharmacy Consult (Consult Rx Perform Med Rec) 1 each MISCELLANE ONCE PRN PRN Reason: Consult order Sodium Chloride (0.9 % Sodium Chloride Flush 3 Ml Syringe) 3 ml IVFLUSH QSHIFT [facility] Last Admin: 07/17/21 08:55 Dose: Not Given Documented by: <Crystal Edwards PA-C - Last Filed: 07/17/21 13:05> Physical Exam Vital Signs: Vital Signs: Last Vital Signs Temp 97.2 F 07/16/21 22:51 Pulse 66 07/16/21 22:51 Resp 18 07/17/21 05:01 BP 143/68 H 07/16/21 22:51 Pulse Ox 98 07/16/21 22:51 BMI result Body Mass Index 21.9 <Crystal Edwards PA-C - Last Filed: 07/17/21 13:05> Const: General: comfortable, no acute distress and alert <Crystal Edwards, PA- Tiff Last Filed: 07/17/21 13:05> Nutritional Appearance: well nourished <Crystal VALENTINA EdwardsTiff Tiff Last Filed: 07/17/21 13:05> Orientation/consciousness: patient oriented x3 <MARY Huitron Tiff Last Filed: 07/17/21 13:05> Eyes: Sclerae: sclerae normal <Crystal [facility]TiffUniversity [facility] Last Filed: 07/17/21 13:05> Cardio: Rate: regular rate <Crystal VALENTINA EdwardsTiff Tiff Last Filed: 07/17/21 13:05> GI: Inspection: Yes normal to inspection and No distended <VALENTINA HuitronTiffUniversity [facility]als [facility] Last Filed: 07/17/21 13:05> Palpation (GI): Soft to palpation, Tenderness to palpation present (GI) in the RLQ (with rebound), at McBurney's point and Rovsing's sign positive, no guarding and not rigid <Crystal VALENTINA EdwardsTiffUniversity [facility]als [facility] Last Filed: 07/17/21 13:05> Percussion: Yes normal to percussion <VALENTINA HuitronTiff Tiff Last Filed: 07/17/21 13:05> Skin: General skin exam: no rashes or lesions noted <VALENTINA HuitronTiffUniversity [facility]als [facility] Last Filed: 07/17/21 13:05> Neuro: General: patient oriented x3 <VALENTINA HuitronTiff Tiff Last Filed: 07/17/21 13:05> Extrem: General: Yes no clubbing, cyanosis or edema <MARY [facility]University [facility] Last Filed: 07/17/21 13:05> Results Labs Result diagrams: : 07/17/21 08:36 07/17/21 08:36 <MARY Huitron Tiff Last Filed: 07/17/21 13:05> Labs: Abnormal lab results 07/16/21 07/16/21 07/17/21 Range/Units 09:57 09:57 08:36 WBC 4.7 L (4.8-10.8) X10*3/uL RBC 4.01 L 3.76 L (4.60-5.80) X10*6/uL Hgb 12.7 L 11.8 L (14.0-18.0) g/dl Hct 38.7 L 35.9 L (42.0-52.0) % Plt Count 148 L 129 L (160-400) X10*3/uL Lymph # (Auto) 1.0 L (1.2-4.9) X10*3/uL Chloride (96-108) mmol/L Anion Gap 10 L (12-20) BUN (9-16) mg/dL AST 130 H (5-37) U/L ALT 339 H (0-40) U/L Total Protein 6.0 L (6.5-8.0) g/dL 07/17/21 Range/Units 08:36 WBC (4.8-10.8) X10*3/uL RBC (4.60-5.80) X10*6/uL Hgb (14.0-18.0) g/dl Hct (42.0-52.0) % Plt Count (160-400) X10*3/uL Lymph # (Auto) (1.2-4.9) X10*3/uL Chloride 110 H (96-108) mmol/L Anion Gap 11 L (12-20) BUN 6 L (9-16) mg/dL AST (5-37) U/L ALT (0-40) U/L Total Protein (6.5-8.0) g/dL Short CBC 07/16/21 07/17/21 Range/Units 09:57 08:36 WBC 9.0 4.7 L (4.8-10.8) X10*3/uL Hgb 12.7 L 11.8 L (14.0-18.0) g/dl Hct 38.7 L 35.9 L (42.0-52.0) % Plt Count 148 L 129 L (160-400) X10*3/uL BMP 07/16/21 07/17/21 09:57 08:36 Sodium 140 141 Potassium 3.7 D 3.5 Chloride 108 110 H Carbon Dioxide 27 24 BUN 9 6 L Creatinine 0.75 0.71 Calcium 8.7 8.4 Liver Function 07/16/21 Range/Units 09:57 Total Bilirubin 0.9 (0.0-1.0) mg/dL Direct Bilirubin 0.4 (0.0-0.5) mg/dL AST 130 H (5-37) U/L ALT 339 H (0-40) U/L Alkaline Phosphatase 117 (39-117) U/L Albumin 3.6 (3.5-5.0) g/dL Urine 07/15/21 Range/Units 09:16 Urine Color YELLOW Urine Appearance CLEAR Urine pH 7.0 (5.0-8.0) Ur Specific [place] 1.025 (1.005-1.025) Urine Protein 1+ H (NEG-TRACE) MG/DL Urine Glucose (UA) NEG (NEG) MG/DL All other labs normal. <Crystal Edwards PA-C - Last Filed: 07/17/21 13:05> Assessment and Plan (1) Transaminitis: Status: Acute <Crystal Edwards PA-C - Last Filed: 07/17/21 13:05> (2) Abdominal pain: Qualifiers: Abdominal location: left upper quadrant Qualified Code(s): R10.12 - Left upper quadrant pain <Crystal Edwards PA-C - Last Filed: 07/17/21 13:05> Status: Acute <Crystal Edwards PA-C - Last Filed: 07/17/21 13:05> (3) Acute appendicitis: Status: Acute <Crystal Edwards PA-C - Last Filed: 07/17/21 13:05> 70 year old male with hx of CAD, MN, CAD who presented with epigastric abd pain that has now migrated to the RLQ, nausea/vomiting and diarrhea with a dilated appendix with a fecalith and wall thickening on MRI. He does have RLQ tenderness most significant at Mcburneys point and a positive rovsing sign. Clinical findings suggestive of early acute appendicitis. This has been discussed with the patient and daughter in detail. Treatment options were discussed including observation and IV abx therapy versus laparoscopic appendectomy possible open. It was also discussed with them that the presence of the fecalith is a relative contraindication to antibiotic therapy alone. He however is non toxic appearing and this could be trialed but this may not be successful and does not rule out the possible need for surgery if he does not improve or worsens. Technique, risks and benefits of the procedure were discussed including infection, bleeding, MN, injury to surrounding organs such as bowel, bladder, vasculature, staple line leak, and wrong diagnosis. They have elected to proceed with surgery. All questions were answered. Will add onto the OR schedule for today. He was started on IV zosyn this morning which will be continued. Case discussed with Dr. Edmond. <Crystal Edwards PA-C - Last Filed: 07/17/21 13:05> 70 year old male with hx of CAD, MN, CAD who presented with epigastric abd pain that has now migrated to the RLQ, nausea/vomiting and diarrhea with a dilated appendix with a fecalith and wall thickening on MRI. He does have RLQ tenderness most significant at Mcburneys point and a positive rovsing sign. Clinical findings suggestive of early acute appendicitis. This has been discussed with the patient and daughter in detail. Treatment options were discussed including observation and IV abx therapy versus laparoscopic appendectomy possible open. It was also discussed with them that the presence of the fecalith is a relative contraindication to antibiotic therapy alone. He however is non toxic appearing and this could be trialed but this may not be successful and does not rule out the possible need for surgery if he does not improve or worsens. Technique, risks and benefits of the procedure were discussed including infection, bleeding, MN, injury to surrounding organs such as bowel, bladder, vasculature, staple line leak, and wrong diagnosis. They have elected to proceed with surgery. All questions were answered. Will add onto the OR schedule for today. He was started on IV zosyn this morning which will be continued. Case discussed with Dr. Edmond. Agree with the above assessment and plan. As noted above patient is a 70-year-old male patient initially presenting with left upper quadrant abdominal pain now with right lower quadrant abdominal pain found on initial studies to have a dilated appendix with a fecalith. MRI seems to indicate fluid around the appendix suggestive of inflammatory changes. On examination the patient is alert and awake in no acute distress. His abdomen is soft but tender in the right lower quadrant with localized rebound tenderness. Although his symptoms initially were atypical for appendicitis is current symptoms are more likely due to acute appendicitis. The presence of a fecalith making non operative management with antibiotics less successful there for laparoscopic appendectomy or possible open appendectomy is recommended. I reviewed the procedure, risks, and alternatives in detail with the patient through the interpreting service. He consents to a laparoscopic or possible open appendectomy. <Prasanna Edmond MD - Last Filed: 07/17/21 12:37> Procedures Date of Service Date of Service: 07/17/21 <Prasanna Edmond MD - Last Filed: 07/17/21 12:37>
--- NOTE | 2021-07-17 11:27 | PC.NURSE ---
Pt OOB to BR independantly, spoke to PA regarding surgery and is now agreeable, IV fluids running at this time. No complaints of pain, will continue to monitor.
--- NOTE | 2021-07-17 11:55 | PC.NURSE ---
Pt to short stay at this time.
--- NOTE | 2021-07-17 12:25 | PC.NURSE ---
dr mcdonald at bedside speaking to pt concerning suergery with [employer] mandarin interpretor pt verbalized understanding of procedure
--- NOTE | 2021-07-17 12:37 | MHC.SHP ---
Pre-Procedural Eval Section A Date of Service: 07/17/21 The patient is an INPATIENT: Yes Section B Chief Complaint: Intractable nausea & vomiting Abdominal pain Allergies: Allergies Allergy/AdvReac Type Severity Reaction Status Date / Time No Known Allergies Allergy Verified 07/15/21 07:24 Plan Diagnosis/Plan: Unchanged I have reviewed the history and physical and performed a pertinent physical examination on my patient. No changes have occurred unless specified.
--- NOTE | 2021-07-17 13:46 | HO.PM.IMPN ---
Subjective Subjective Date of Service: 07/17/21 Interval History: seen and examined this morning follow up for abdominal pain no overnight events history obtained with bioinformatician/LUIS and daughter at bedside Review of Systems Review of Systems: Yes all other systems are reviewed and are negative Constitutional Constitutional: Denies chills and Denies fever(s) Cardiovascular Cardiovascular: Denies chest pain Respiratory Respiratory: Denies cough Gastrointestinal Gastrointestinal: Reports abdominal pain Physical Exam Vital Signs: Vital Signs: Last Vital Signs Temp 98.5 F 07/17/21 12:01 Pulse 64 07/17/21 12:01 Resp 8 L 07/17/21 12:01 BP 151/73 H 07/17/21 12:01 Pulse Ox 98 07/17/21 12:01 BMI result Body Mass Index 21.9 Const: General: cooperative, comfortable, no acute distress, alert and awake Nutritional Appearance: well nourished Orientation/consciousness: patient oriented x3 Limitations: language barrier HENMT: Head: Yes normocephalic and Yes atraumatic Eyes: Sclerae: sclerae normal Resp: Effort & Inspection: normal respiratory effort and no respiratory distress Cardio: Rate: regular rate Rhythm: regular rhythm GI: Other: soft, non-distended; TTP RLQ Neuro: General: patient oriented x3 Cranial nerves: Yes CN's II-XII intact bilaterally and Yes Bilaterally intact EOM present Objective Data Active Medications Acetaminophen (Acetaminophen 325 Mg Tablet) 325 mg PO Q6H PRN PRN Reason: Fever Famotidine (Famotidine/Pf 20 Mg/2 Ml Vial) 20 mg IVPUSH BID [facility] Last Admin: 07/17/21 08:54 Dose: 20 mg Documented by: PATRICK Heparin Sodium (Porcine) (Heparin Sodium,Porcine 5,000 Unit/Ml Vial) 5,000 unit SUBCUT Q12H [facility] Last Admin: 07/17/21 06:22 Dose: 5,000 unit Documented by: CLIF Dextrose/Sodium Chloride (D5ns) 1,000 mls @ 100 mls/hr IVCONT .Q10H [facility] Last Admin: 07/17/21 10:00 Dose: 100 mls/hr Documented by: PATRICK Piperacillin Sod/Tazobactam (Sod 3.375 gm/ Sodium Chloride) 50 mls @ 100 mls/hr IV Q6H [facility] Last Infusion: 07/17/21 10:30 Dose: 0 mls/hr Documented by: PATRICK Morphine Sulfate (Morphine Sulfate 2 Mg/Ml Cartridge) 2 mg IVPUSH Q4H PRN; Protocol PRN Reason: Pain, Mild (Pain Scale 1-3) Last Admin: 07/16/21 00:35 Dose: 2 mg Documented by: BECCA Ondansetron HCl (Ondansetron Hcl 4 Mg/2 Ml Vial) 4 mg IVPUSH Q6H PRN PRN Reason: nausea and vomiting Pharmacy Consult (Consult Rx Perform Med Rec) 1 each MISCELLANE ONCE PRN PRN Reason: Consult order Sodium Chloride (0.9 % Sodium Chloride Flush 3 Ml Syringe) [facility] Last Admin: 07/17/21 08:54 Dose: 3 ml Documented by: PATRICK Labs CBC & Chem 7: 07/17/21 08:36 07/17/21 08:36 Labs: Laboratory Results - last 24 hr 07/17/21 07/17/21 08:36 08:36 MCV 95.5 MCH 31.4 MCHC 32.9 RDW 13.0 Plt Count 129 L MPV 11.4 Immature Gran % (Auto) 0.2 Neut % (Auto) 66.0 Lymph % (Auto) 21.8 [place] % (Auto) 11.0 Eos % (Auto) 0.6 Baso % (Auto) 0.4 Lymph # (Auto) 1.0 L [place] # (Auto) 0.5 Eos # (Auto) 0.0 Baso # (Auto) 0.0 Abs Immat Gran (auto) 0.01 Absolute Neuts (auto) 3.1 Absolute Nucleated RBC 0.000 Nucleated RBC % (auto) 0.0 Anion Gap 11 L Estim Creat Clear Calc 74.5 Estimated GFR > 60 Random Glucose 100 Calcium 8.4 Microbiology Microbiology Results: Microbiology 07/15/21 08:28 Blood Culture - Preliminary Blood - Venous No growth after 48 hours. 07/15/21 08:09 Blood Culture - Preliminary Blood - Venous No growth after 48 hours. Assessment and Plan (1) Acute appendicitis: Status: Acute (2) Transaminitis: Status: Acute Assessment and Plan: This is a 70 M with a PMH of CAD, CVA who presents to the hospital with sudden onset abdominal pain with associated vomiting and diarrhea. He has abnormalities on CT scan and abnormal transaminaes for which is under going workup. Abdominal pain presented with LLQ pain, now mid lower region / RLQ CT showing ? chronic appendiceal inflammation MRI showing possible acute appendicitis - seen by surgery plan for appendectomy today continue IV zosyn for now continue with IV Pepcid Transaminitis serologic work up in progress down-trending hold lipitor GI following repeat LFTS in am CVA/CAD hold antiplatelet, restart once surgical/endoscopic eval not needed Full Code DVT pptx, low risk attending: dr. boss Quality Stroke Does the patient have a stroke diagnosis?: No VTE Prior VTE?: No VTE Risk Level:: Medical - moderate - high VTE Device Contraindication: Treatment Not Indicated VTE Drug Contraindication: N/A - Med Ordered
--- NOTE | 2021-07-17 14:37 | P.OP_ITS ---
Operative Note Operative Note Date of Service: 07/17/21 Narrative: Preoperative diagnosis: Acute appendicitis Postoperative diagnosis: Same Procedure: Laparoscopic appendectomy Surgeon: Prasanna Edmond MD Senior Sql Database Developer:Crystal Edwards PA-C Anesthesia: General endotracheal Indications for procedure:70 year old male patient presenting with complaints of abdomenal pain in the left upper quadrant, now localized to the right lower quadrant, normal WBC, but found to have a dilated appendix with a fecolith and surrounding fluid suggestive of acute appendicitis on CT. Operative findings: Dilated appendix without significant inflammation; possible chronic appendicitis. Small amount of serous fluid was noted in the right gutter. Specimen:appendix Estimated blood loss:1 ml Complications: none Procedure details: Patient was brought to the OR and placed in a supine po sition. After administering general anesthesia the patient's abdomen was prepped with ChloraPrep and draped in a sterile fashion. A surgical time-out was called and consent confirmed. Patient received preoperative antibiotics and Venodyne boots were in place. Local anesthesia consisting of 0.5% Sensorcaine without epinephrine was infiltrated in periumbilical region. A 5 mm incision was made below the umbilicus and carried down through subcutaneous tissue. A Veress needle was then inserted while elevating abdominal cavity with towel clips. After a positive drop test the abdomen was insufflated to a pressure of 15 mm of mercury. The Veress needle was removed and a 5 mm trocar inserted. The camera was then inserted in the abdomen explored. A 2nd 5 mm trocars placed in the lower midline. A 12 mm trocar was then placed in the left lower quadrant. The patient was then placed in a Trendelenburg position and rotated to the left. The appendix was identified in the right lower quadrant and brought up using blunt dissecting clamps. The mesentery of the appendix was then divided using the LigaSure. The appendiceal artery was cauterized and divided using the LigaSure. Dissection was continued down to the base of the cecum. An Endo-RADHA stapler with a purple reload was then used to divide the appendix at the base with the cecum. The appendix was then placed in Endo-Catch bag and brought out through the left lower quadrant incision. The small amount of serous fluid in the rigt gutter was suctioned dry. Wounds were checked for hemostasis. CO2 was then evacuated from the abdominal cavity and all trocars removed. Fascia was closed in the left lower quadrant incision using a [id number] 0 Polysorb suture. Skin was closed at all incisions using a subcuticular 4-0 Polysorb suture. Steri-Strips, 2 x 2 gauze, and Tegaderm were then applied. The patient tolerated the procedure well. Sponge, instrument, and needle counts were reported as correct. The patient was transferred to PACU in stable condition.
--- NOTE | 2021-07-17 14:54 | HO.ANESPROP2 ---
HPI - Anesthesia Eval Consult details Narrative: 70-year-old male with history CAD last episode of angina 13 months ago, CVA with mild residual left-sided weakness presenting for laparoscopic appendectomy [facility] Active Problems Active Problems: All Active Problems (Updated 07/17/21 @ 10:28 by Crystal Edwards PA-C) Acute appendicitis (Acute) Transaminitis (Acute) Pancreatitis (Acute) Intractable vomiting (Acute) Abdominal pain (Acute) CAD (coronary artery disease) (Acute) CVA (cerebral vascular accident) (Acute) Cerebrovascular disease (Acute) Past Medical History Medical History CAD (coronary artery disease) CVA (cerebral vascular accident) No known health problems Family History Family History Other CAD (coronary artery disease) Family history of problems with anesthesia: No Surgical History Surgical History No significant past surgical history History of Problems with Anesthesia: No Social History Social History Household Members: Family Housing: House Alcohol intake: never Patient Tobacco Use Status: Former Tobacco user Use of substances other than those prescribed or required for medical reasons: No Advance Directives: No Advance Directives Information Provided: No service: No Current occupational status: retired Meds Allergies Allergy/AdvReac Type Severity Reaction Status Date / Time No Known Allergies Allergy Verified 07/15/21 07:24 Active Medications: Current Medications Acetaminophen (Acetaminophen 325 Mg Tablet) 325 mg PO Q6H PRN PRN Reason: Fever Famotidine (Famotidine/Pf 20 Mg/2 Ml Vial) 20 mg IVPUSH BID [facility] Last Admin: 07/17/21 08:54 Dose: 20 mg Documented by: Heparin Sodium (Porcine) (Heparin Sodium,Porcine 5,000 Unit/Ml Vial) 5,000 unit SUBCUT Q12H TEE Last Admin: 07/17/21 06:22 Dose: 5,000 unit Documented by: Dextrose/Sodium Chloride (D5ns) 1,000 mls @ 100 mls/hr IVCONT .Q10H TEE Last Admin: 07/17/21 10:00 Dose: 100 mls/hr Documented by: Piperacillin Sod/Tazobactam (Sod 3.375 gm/ Sodium Chloride) 50 mls @ 100 mls/hr IV Q6H [facility] Last Infusion: 07/17/21 10:30 Dose: Infused Documented by: Morphine Sulfate (Morphine Sulfate 2 Mg/Ml Cartridge) 2 mg IVPUSH Q4H PRN; Protocol PRN Reason: Pain, Mild (Pain Scale 1-3) Last Admin: 07/16/21 00:35 Dose: 2 mg Documented by: Ondansetron HCl (Ondansetron Hcl 4 Mg/2 Ml Vial) 4 mg IVPUSH Q6H PRN PRN Reason: nausea and vomiting Pharmacy Consult (Consult Rx Perform Med Rec) 1 each MISCELLANE ONCE PRN PRN Reason: Consult order Sodium Chloride (0.9 % Sodium Chloride Flush 3 Ml Syringe) 3 ml IVFLUSH QSHIFT [facility] Last Admin: 07/17/21 08:55 Dose: Not Given Documented by: Exam Exam Date and Time: July 17, 2021 1454 Height,Weight and Vital Signs: Height 5 ft 2 in Weight 120 lb Last Vital Signs Temp 98.8 F 07/17/21 14:46 Pulse 65 07/17/21 14:51 Resp 16 07/17/21 14:51 BP 120/68 07/17/21 14:51 Pulse Ox 100 07/17/21 14:51 Pertinent Lab Results Pertinent Lab Results: Laboratory Tests 07/15/21 07/15/21 07/15/21 08:09 08:09 08:09 WBC 7.1 RBC 4.08 L Hgb 13.0 L Hct 38.8 L MCV 95.1 MCH 31.9 MCHC 33.5 RDW 13.0 Plt Count 154 L MPV 11.1 Immature Gran % (Auto) 0.3 Neut % (Auto) 85.8 H Lymph % (Auto) 10.1 L [place] % (Auto) 3.6 Eos % (Auto) 0.1 Baso % (Auto) 0.1 Lymph # (Auto) 0.7 L [place] # (Auto) 0.3 Eos # (Auto) 0.0 Baso # (Auto) 0.0 Abs Immat Gran (auto) 0.02 Absolute Neuts (auto) 6.1 Absolute Nucleated RBC 0.000 Nucleated RBC % (auto) 0.0 PT 12.0 INR 1.1 Sodium 136 Potassium 4.7 Chloride 107 Carbon Dioxide 22 Anion Gap 12 BUN 17 H Creatinine 0.76 Estim Creat Clear Calc 69.6 Estimated GFR > 60 Random Glucose 102 Lactic Acid Calcium 9.2 D Iron TIBC % Saturation Unsat Iron Binding Ferritin Total Bilirubin 0.7 Direct Bilirubin 0.3 AST 194 H ALT 425 H Alkaline Phosphatase 136 H D Total Protein 6.7 Albumin 3.9 Amylase Lipase 9 Vitamin B12 Folate Urine Color Urine Appearance Urine pH Ur Specific [place] Urine Protein Urine Glucose (UA) Urine Ketones Urine Blood Urine Nitrite Ur Leukocyte Esterase Urine RBC Urine WBC Ur Squamous Epith Cells Amorphous Sediment Urine Bacteria Urine Mucus COVID-19 (OTILIA) COVID-19 Clin Com Hepatitis A IgM Ab Hep Bs Antigen Hep Bs Antibody Hep B Core Total Ab Hep B Core IgM Ab Hepatitis C Ab (EIA) HIV 1&2 Ab/P24 Ag 4thGn 07/15/21 07/15/21 07/15/21 08:09 08:09 09:16 WBC RBC Hgb Hct MCV MCH MCHC RDW Plt Count MPV Immature Gran % (Auto) Neut % (Auto) Lymph % (Auto) [place] % (Auto) Eos % (Auto) Baso % (Auto) Lymph # (Auto) [place] # (Auto) Eos # (Auto) Baso # (Auto) Abs Immat Gran (auto) Absolute Neuts (auto) Absolute Nucleated RBC Nucleated RBC % (auto) PT INR Sodium Potassium Chloride Carbon Dioxide Anion Gap BUN Creatinine Estim Creat Clear Calc Estimated GFR Random Glucose Lactic Acid 0.8 Calcium Iron TIBC % Saturation Unsat Iron Binding Ferritin Total Bilirubin Direct Bilirubin AST ALT Alkaline Phosphatase Total Protein Albumin Amylase Lipase Vitamin B12 Folate Urine Color YELLOW Urine Appearance CLEAR Urine pH 7.0 Ur Specific [place] 1.025 Urine Protein 1+ H Urine Glucose (UA) NEG Urine Ketones >=80 Urine Blood NEG Urine Nitrite NEG Ur Leukocyte Esterase NEG Urine RBC 0-2 Urine WBC 0-2 Ur Squamous Epith Cells NONE Amorphous Sediment 1+ Urine Bacteria NONE Urine Mucus 1+ COVID-19 (OTILIA) Negative COVID-19 Clin Com See Note Hepatitis A IgM Ab Hep Bs Antigen Hep Bs Antibody Hep B Core Total Ab Hep B Core IgM Ab Hepatitis C Ab (EIA) HIV 1&2 Ab/P24 Ag 4thGn 07/15/21 07/15/21 07/15/21 14:59 19:04 19:04 WBC 8.6 RBC 3.87 L Hgb 12.3 L Hct 36.8 L MCV 95.1 MCH 31.8 MCHC 33.4 RDW 12.9 Plt Count 143 L MPV 10.8 Immature Gran % (Auto) Neut % (Auto) Lymph % (Auto) [place] % (Auto) Eos % (Auto) Baso % (Auto) Lymph # (Auto) [place] # (Auto) Eos # (Auto) Baso # (Auto) Abs Immat Gran (auto) Absolute Neuts (auto) Absolute Nucleated RBC 0.000 Nucleated RBC % (auto) 0.0 PT INR Sodium Potassium Chloride Carbon Dioxide Anion Gap BUN Creatinine Estim Creat Clear Calc Estimated GFR Random Glucose Lactic Acid Calcium Iron 73 TIBC 249 % Saturation 29 Unsat Iron Binding 176 Ferritin 222 Cancelled Total Bilirubin Direct Bilirubin AST ALT Alkaline Phosphatase Total Protein Albumin Amylase 81 Lipase Vitamin B12 Folate Urine Color Urine Appearance Urine pH Ur Specific [place] Urine Protein Urine Glucose (UA) Urine Ketones Urine Blood Urine Nitrite Ur Leukocyte Esterase Urine RBC Urine WBC Ur Squamous Epith Cells Amorphous Sediment Urine Bacteria Urine Mucus COVID-19 (OTILIA) COVID-19 Clin Com Hepatitis A IgM Ab Hep Bs Antigen Hep Bs Antibody Hep B Core Total Ab Hep B Core IgM Ab Hepatitis C Ab (EIA) HIV 1&2 Ab/P24 Ag 4thGn 07/15/21 07/15/21 07/16/21 19:04 19:24 09:57 WBC RBC Hgb Hct MCV MCH MCHC RDW Plt Count MPV Immature Gran % (Auto) Neut % (Auto) Lymph % (Auto) [place] % (Auto) Eos % (Auto) Baso % (Auto) Lymph # (Auto) [place] # (Auto) Eos # (Auto) Baso # (Auto) Abs Immat Gran (auto) Absolute Neuts (auto) Absolute Nucleated RBC Nucleated RBC % (auto) PT INR Sodium Potassium Chloride Carbon Dioxide Anion Gap BUN Creatinine Estim Creat Clear Calc Estimated GFR Random Glucose Lactic Acid Calcium Iron TIBC % Saturation Unsat Iron Binding Ferritin Total Bilirubin Direct Bilirubin AST ALT Alkaline Phosphatase Total Protein Albumin Amylase Lipase Vitamin B12 727 Folate 13.1 Urine Color Urine Appearance Urine pH Ur Specific [place] Urine Protein Urine Glucose (UA) Urine Ketones Urine Blood Urine Nitrite Ur Leukocyte Esterase Urine RBC Urine WBC Ur Squamous Epith Cells Amorphous Sediment Urine Bacteria Urine Mucus COVID-19 (OTILIA) COVID-19 Clin Com Hepatitis A IgM Ab Hep Bs Antigen Cancelled Hep Bs Antibody Cancelled Hep B Core Total Ab Cancelled Hep B Core IgM Ab Hepatitis C Ab (EIA) HIV 1&2 Ab/P24 Ag 4thGn Nonreactive 07/16/21 07/16/21 07/16/21 09:57 09:57 09:57 WBC 9.0 RBC 4.01 L Hgb 12.7 L Hct 38.7 L MCV 96.5 MCH 31.7 MCHC 32.8 RDW 13.2 Plt Count 148 L MPV 11.2 Immature Gran % (Auto) Neut % (Auto) Lymph % (Auto) [place] % (Auto) Eos % (Auto) Baso % (Auto) Lymph # (Auto) [place] # (Auto) Eos # (Auto) Baso # (Auto) Abs Immat Gran (auto) Absolute Neuts (auto) Absolute Nucleated RBC 0.000 Nucleated RBC % (auto) 0.0 PT INR Sodium 140 Potassium 3.7 D Chloride 108 Carbon Dioxide 27 Anion Gap 10 L BUN 9 Creatinine 0.75 Estim Creat Clear Calc 70.5 Estimated GFR > 60 Random Glucose 98 Lactic Acid Calcium 8.7 Iron TIBC % Saturation Unsat Iron Binding Ferritin Total Bilirubin 0.9 Direct Bilirubin 0.4 AST 130 H ALT 339 H Alkaline Phosphatase 117 Total Protein 6.0 L Albumin 3.6 Amylase Lipase Vitamin B12 Folate Urine Color Urine Appearance Urine pH Ur Specific [place] Urine Protein Urine Glucose (UA) Urine Ketones Urine Blood Urine Nitrite Ur Leukocyte Esterase Urine RBC Urine WBC Ur Squamous Epith Cells Amorphous Sediment Urine Bacteria Urine Mucus COVID-19 (OTILIA) COVID-19 Clin Com Hepatitis A IgM Ab Nonreactive Hep Bs Antigen Negative Hep Bs Antibody REACTIVE Hep B Core Total Ab Reactive Hep B Core IgM Ab Cancelled Hepatitis C Ab (EIA) Nonreactive HIV 1&2 Ab/P24 Ag 4thGn 07/17/21 07/17/21 08:36 08:36 WBC 4.7 L RBC 3.76 L Hgb 11.8 L Hct 35.9 L MCV 95.5 MCH 31.4 MCHC 32.9 RDW 13.0 Plt Count 129 L MPV 11.4 Immature Gran % (Auto) 0.2 Neut % (Auto) 66.0 Lymph % (Auto) 21.8 [place] % (Auto) 11.0 Eos % (Auto) 0.6 Baso % (Auto) 0.4 Lymph # (Auto) 1.0 L [place] # (Auto) 0.5 Eos # (Auto) 0.0 Baso # (Auto) 0.0 Abs Immat Gran (auto) 0.01 Absolute Neuts (auto) 3.1 Absolute Nucleated RBC 0.000 Nucleated RBC % (auto) 0.0 PT INR Sodium 141 Potassium 3.5 Chloride 110 H Carbon Dioxide 24 Anion Gap 11 L BUN 6 L Creatinine 0.71 Estim Creat Clear Calc 74.5 Estimated GFR > 60 Random Glucose 100 Lactic Acid Calcium 8.4 Iron TIBC % Saturation Unsat Iron Binding Ferritin Total Bilirubin Direct Bilirubin AST ALT Alkaline Phosphatase Total Protein Albumin Amylase Lipase Vitamin B12 Folate Urine Color Urine Appearance Urine pH Ur Specific [place] Urine Protein Urine Glucose (UA) Urine Ketones Urine Blood Urine Nitrite Ur Leukocyte Esterase Urine RBC Urine WBC Ur Squamous Epith Cells Amorphous Sediment Urine Bacteria Urine Mucus COVID-19 (OTILIA) COVID-19 Clin Com Hepatitis A IgM Ab Hep Bs Antigen Hep Bs Antibody Hep B Core Total Ab Hep B Core IgM Ab Hepatitis C Ab (EIA) HIV 1&2 Ab/P24 Ag 4thGn Airway Mallampati Class: II TM Dist: >3cm Neck ROM: Full Loose/Missing/Broken Teeth: Yes ( poor dentition with several broken teeth) Assessment and Plan Assessment Anesthesia Assessment: Anesthesia Plan Discussed and Chart Reviewed Final Anesthetic Review Family History of Problems with Anesthesia: No History of Problems with Anesthesia: No NPO: Yes ASA Class: III and Emergency Final Preanesthetic Review: No Changes in Pt Med Stat, Meds/Allgs Chart Reviewed, Consent Obtained/Reviewed and Anes Risks/Benef Reviewed Patient Risk: Intermediate Procedure Risk: Low Anesthetic Plan Anesthetic Plan: GA Disposition: Standard PACU
[2021-07-17] MEDS: Acetaminophen 325 MG TABLET PO (15:46)
[2021-07-17] MEDS: Morphine Sulfate 2 MG/ML CARTRIDGE IVPUSH (22:43)
[2021-07-18] VITALS: BP 128/73; PULSE 79; RESP 15; TEMP 36.4; O2SAT 96
[2021-07-18] MEDS: Heparin Sodium,Porcine 5,000 UNIT/ML VIAL 5000 UNIT SUBCUT (01:44)
[2021-07-18] MEDS: Piperacillin Sodium/Tazobactam 3.375 GM in 0.9 % Sodium Chloride 50 ML IV ×2 (01:44→07:18)
[2021-07-18] MEDS: Morphine Sulfate 2 MG/ML CARTRIDGE IVPUSH (03:31)
[2021-07-18] MEDS: Dextrose 5 % and 0.9 % NaCl 1,000 ML 100 ML IVCONT ×2 (03:31→14:05)
[2021-07-18 03:41] VITALS: BP 127/67; PULSE 66; RESP 17; TEMP 36.6; O2SAT 97
[2021-07-18 05:45] LABS: Hematocrit 33.6 % (42.0-52.0); Mean Corpuscular Volume 93.3 fL (80.0-98.0); PLT CLUMP 1; SCAN SMEAR FLAG 1
[2021-07-18 05:47] LABS: Hemoglobin 11.4 g/dl (14.0-18.0); Imm Gran Abs Auto 0.02 X10*3/uL (0.00-0.03); Imm Gran Pct Auto 0.2 % (0.0-0.4); Lymphocytes Absolute Auto 0.8 X10*3/uL (1.2-4.9); Lymphocytes Percent Auto 10.4 % (20-40); Mean Corpuscular HGB Conc 33.9 g/dl (31.0-36.0); Mean Corpuscular Hemoglobin 31.7 pg (27.0-33.0); Monocytes Absolute Auto 0.8 X10*3/uL (0.1-1.2); Monocytes Percent Auto 9.4 % (2-11); Neutrophils Absolute Auto 6.4 x10*3/uL (2.0-8.3); Red Cell Distribution Width 12.8 % (11.0-16.0)
[2021-07-18 05:48] LABS: MANUAL DIFF FLAG NO; Platelet Count 126 X10*3/uL (160-400)
[2021-07-18 06:02] LABS: Alanine Aminotransferase 202 U/L (0-40); Albumin Level 3.1 g/dL (3.5-5.0); Alkaline Phosphatase 93 U/L (39-117); Anion Gap 11 (12-20); Aspartate Amino Transferase 59 U/L (5-37); Bilirubin Direct 0.3 mg/dL (0.0-0.5); Bilirubin Total 0.6 mg/dL (0.0-1.0); Blood Urea Nitrogen 9 mg/dL (9-16); Calcium 8.2 mg/dL (8.4-10.2); Carbon Dioxide 23 mmol/L (22-29); Chloride 111 mmol/L (96-108); Creatinine Clr Calc Pharmacy 66.1; Estimated Glomerular Filt Rate > 60; Glucose Random 123 mg/dL (60-115); Potassium 3.5 mmol/L (3.3-5.1); Sodium 141 mmol/L (135-145); Total Protein 5.3 g/dL (6.5-8.0)
[2021-07-18] MEDS: oxyCODONE HCl Immed Release 5 MG TABLET PO (07:18)
[2021-07-18] MEDS: Famotidine/PF 20 MG/2 ML VIAL IVPUSH (07:18)
[2021-07-18 07:45] VITALS: BP 122/65; PULSE 51; RESP 18; TEMP 37.1; O2SAT 98
--- NOTE | 2021-07-18 08:24 | MHC.CM.PN ---
NURSE CARE MANAGEMENT NURSE CAEE S[employer] DEVELOPER NOTE SPOKE WITH SURGICAL PA AND PATIENT IS POST OP APPENDECTOMY, PATIENT WILL BE DISCHARGED HOME TODAY DISCHARGE PLAN HOME NO SERVICES PCP PATIENT TO CALL FOR APPOINTMENT FOR [facility] DISCHARGE SURGEON FOLLOW UP PER DISCHARGE INSTRUCTIONS
--- NOTE | 2021-07-18 08:45 | PM.PNGS ---
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 He feels better this morning. The LUQ/RLQ pain that was present preoperatively is gone. He has mild pain at the incision sites (mostly at left midabdomen) and is relieved by analgesics. He tolerated solid food last night. Passing flatus. <Crystal Edwards PA-C - Last Filed: 07/18/21 08:50> Physical Exam Vital Signs: Vital Signs: Last Vital Signs Temp 98.8 F 07/18/21 07:45 Pulse 51 07/18/21 07:45 Resp 18 07/18/21 07:45 BP 122/65 07/18/21 07:45 Pulse Ox 98 07/18/21 07:45 BMI result Body Mass Index 21.9 <Crystal Edwards PA-C - Last Filed: 07/18/21 08:50> Const: General: comfortable, no acute distress and alert <MATEUSZ Huitron Last Filed: 07/18/21 08:50> Orientation/consciousness: patient oriented x3 <Crystal Edwards PA-C - Last Filed: 07/18/21 08:50> Resp: Effort & Inspection: normal respiratory effort <Crystal Edwards PA-C - Last Filed: 07/18/21 08:50> GI: Inspection: No distended and Yes incision (dressings c/d/i) <Crystal Edwards PA-C - Last Filed: 07/18/21 08:50> Palpation (GI): Soft to palpation, Tenderness to palpation present (GI) (mild, incisional) and no guarding <MATEUSZ Huitron Last Filed: 07/18/21 08:50> Skin: General skin exam: no rashes or lesions noted <MATEUSZ Huitron Last Filed: 07/18/21 08:50> Neuro: General: patient oriented x3 <Crystal Edwards PA-C - Last Filed: 07/18/21 08:50> Objective Data Active Medications Acetaminophen (Acetaminophen 325 Mg Tablet) 325 mg PO Q6H PRN PRN Reason: Fever Last Admin: 07/17/21 15:46 Dose: 325 mg Documented by: DAIANA Famotidine (Famotidine/Pf 20 Mg/2 Ml Vial) 20 mg IVPUSH BID [facility] Last Admin: 07/18/21 07:18 Dose: 20 mg Documented by: MIKE Heparin Sodium (Porcine) (Heparin Sodium,Porcine 5,000 Unit/Ml Vial) 5,000 unit SUBCUT Q12H [facility] Last Admin: 07/18/21 01:44 Dose: 5,000 unit Documented by: NOLVIA Dextrose/Sodium Chloride (D5ns) 1,000 mls @ 100 mls/hr IVCONT .Q10H [facility] Last Admin: 07/18/21 03:31 Dose: 100 mls/hr Documented by: NOLVIA Piperacillin Sod/Tazobactam (Sod 3.375 gm/ Sodium Chloride) 50 mls @ 100 mls/hr IV Q6H [facility] Last Admin: 07/18/21 07:18 Dose: 100 mls/hr Documented by: MIKE Morphine Sulfate (Morphine Sulfate 2 Mg/Ml Cartridge) 2 mg IVPUSH Q4H PRN; Protocol PRN Reason: Pain, Mild (Pain Scale 1-3) Last Admin: 07/18/21 03:31 Dose: 2 mg Documented by: NOLVIA Ondansetron HCl (Ondansetron Hcl 4 Mg/2 Ml Vial) 4 mg IVPUSH Q6H PRN PRN Reason: nausea and vomiting Oxycodone HCl (Oxycodone Hcl Immed Release 5 Mg Tablet) 5 mg PO Q6H PRN PRN Reason: Pain, Moderate (Pain Scale 4-6 Last Admin: 07/18/21 07:18 Dose: 5 mg Documented by: MIKE Pharmacy Consult (Consult Rx Perform Med Rec) 1 each MISCELLANE ONCE PRN PRN Reason: Consult order Sodium Chloride (0.9 % Sodium Chloride Flush 3 Ml Syringe) 3 ml IVFLUSH QSHIFT [facility] Last Admin: 07/18/21 07:13 Dose: Not Given Documented by: MIKE Non-Admin Reason: IV Running <Crystal Edwards PA-C - Last Filed: 07/18/21 08:50> Labs CBC & Chem 7: : 07/18/21 05:22 07/18/21 05:22 <Crystal Edwards PA-C - Last Filed: 07/18/21 08:50> Labs: Laboratory Results - last 24 hr 07/17/21 07/17/21 07/18/21 08:36 08:36 05:22 MCV 95.5 93.3 MCH 31.4 31.7 MCHC 32.9 33.9 RDW 13.0 12.8 Plt Count 129 L 126 L MPV 11.4 11.0 Immature Gran % (Auto) 0.2 0.2 Neut % (Auto) 66.0 80.0 H Lymph % (Auto) 21.8 10.4 L [place] % (Auto) 11.0 9.4 Eos % (Auto) 0.6 0.0 Baso % (Auto) 0.4 0.0 Lymph # (Auto) 1.0 L 0.8 L [place] # (Auto) 0.5 0.8 Eos # (Auto) 0.0 0.0 Baso # (Auto) 0.0 0.0 Abs Immat Gran (auto) 0.01 0.02 Absolute Neuts (auto) 3.1 6.4 Absolute Nucleated RBC 0.000 0.000 Nucleated RBC % (auto) 0.0 0.0 Anion Gap 11 L Estim Creat Clear Calc 74.5 Estimated GFR > 60 Random Glucose 100 Calcium 8.4 Total Bilirubin Direct Bilirubin AST ALT Alkaline Phosphatase Total Protein Albumin 07/18/21 05:22 MCV MCH MCHC RDW Plt Count MPV Immature Gran % (Auto) Neut % (Auto) Lymph % (Auto) [place] % (Auto) Eos % (Auto) Baso % (Auto) Lymph # (Auto) [place] # (Auto) Eos # (Auto) Baso # (Auto) Abs Immat Gran (auto) Absolute Neuts (auto) Absolute Nucleated RBC Nucleated RBC % (auto) Anion Gap 11 L Estim Creat Clear Calc 66.1 Estimated GFR > 60 Random Glucose 123 H Calcium 8.2 L Total Bilirubin 0.6 Direct Bilirubin 0.3 AST 59 H ALT 202 H Alkaline Phosphatase 93 D Total Protein 5.3 L Albumin 3.1 L <Crystal Edwards PA-C - Last Filed: 07/18/21 08:50> Microbiology Microbiology Results: Microbiology 07/15/21 08:28 Blood Culture - Preliminary Blood - Venous No growth after 48 hours. 07/15/21 08:09 Blood Culture - Preliminary Blood - Venous No growth after 48 hours. <Crystal Edwards PA-C - Last Filed: 07/18/21 08:50> Procedures Date of Service Date of Service: 07/18/21 <Crystal Edwards PA-C - Last Filed: 07/18/21 08:50> Progress Note: A&P Assessment and plan (1) Acute appendicitis: Status: Acute <MATEUSZ Huitron Last Filed: 07/18/21 08:50> (2) S/P laparoscopic appendectomy: Status: Acute <MATEUSZ Huitron Last Filed: 07/18/21 08:50> Assessment and Plan: 70 year old male admitted with LUQ abd pain that migrated to RLQ and distended appendix with fecalith on imaging. He is now POD #1 s/p lap appy for acute appendicitis. He is doing very well post operatively with good pain control and tolerating solid diet. VSS. Abd exam benign with appropriate post op tenderness, dressings intact. He is stable for discharge to home today from surgical standpoint. F/u in office in 1-[address] Edmond. Patient and daughter comfortable with plan. All questions answered. <Crystal Edwards PA-C - Last Filed: 07/18/21 08:50> 70 year old male admitted with LUQ abd pain that migrated to RLQ and distended appendix with fecalith on imaging. He is now POD #1 s/p lap appy for acute appendicitis. He is doing very well post operatively with good pain control and tolerating solid diet. VSS. Abd exam benign with appropriate post op tenderness, dressings intact. He is stable for discharge to home today from surgical standpoint. F/u in office in 1-[address] Edmond. Patient and daughter comfortable with plan. All questions answered. Overall the patient feels improved but does report some incisional pain in the left lower quadrant. His wounds are clean and intact without redness or discharge. Tolerated some diet yesterday without nausea or vomiting. He required some pain medication during the night for the incisional pain. Overall he is much improved and should be able to go home later today if tolerates his breakfast without nausea or vomiting. She should follow up my office in 1-2 weeks for wound check. He may remove the dressing in 2-3 days and could shower today. <Prasanna Edmond MD - Last Filed: 07/18/21 08:53> Fall Risk Details Current Medications: Current Medications Acetaminophen (Acetaminophen 325 Mg Tablet) 325 mg PO Q6H PRN PRN Reason: Fever Last Admin: 07/17/21 15:46 Dose: 325 mg Documented by: Famotidine (Famotidine/Pf 20 Mg/2 Ml Vial) 20 mg IVPUSH BID [facility] Last Admin: 07/18/21 07:18 Dose: 20 mg Documented by: Heparin Sodium (Porcine) (Heparin Sodium,Porcine 5,000 Unit/Ml Vial) 5,000 unit SUBCUT Q12H [facility] Last Admin: 07/18/21 01:44 Dose: 5,000 unit Documented by: Dextrose/Sodium Chloride (D5ns) 1,000 mls @ 100 mls/hr IVCONT .Q10H [facility] Last Admin: 07/18/21 03:31 Dose: 100 mls/hr Documented by: Piperacillin Sod/Tazobactam (Sod 3.375 gm/ Sodium Chloride) 50 mls @ 100 mls/hr IV Q6H [facility] Last Admin: 07/18/21 07:18 Dose: 100 mls/hr Documented by: Morphine Sulfate (Morphine Sulfate 2 Mg/Ml Cartridge) 2 mg IVPUSH Q4H PRN; Protocol PRN Reason: Pain, Mild (Pain Scale 1-3) Last Admin: 07/18/21 03:31 Dose: 2 mg Documented by: Ondansetron HCl (Ondansetron Hcl 4 Mg/2 Ml Vial) 4 mg IVPUSH Q6H PRN PRN Reason: nausea and vomiting Oxycodone HCl (Oxycodone Hcl Immed Release 5 Mg Tablet) 5 mg PO Q6H PRN PRN Reason: Pain, Moderate (Pain Scale 4-6 Last Admin: 07/18/21 07:18 Dose: 5 mg Documented by: Pharmacy Consult (Consult Rx Perform Med Rec) 1 each MISCELLANE ONCE PRN PRN Reason: Consult order Sodium Chloride (0.9 % Sodium Chloride Flush 3 Ml Syringe) 3 ml IVFLUSH [facility] Last Admin: 07/18/21 07:13 Dose: Not Given Documented by: <Crystal Edwards PA-C - Last Filed: 07/18/21 08:50> Time Spent With Patient Time: Total time spent is greater than 50% in coordination of care (as documented) at patient's floor/unit and/or counseling patient: <Crystal Edwards PA-C - Last Filed: 07/18/21 08:50> Time with patient: 25 - 35 minutes <Crystal Edwards PA-C - Last Filed: 07/18/21 08:50> Quality Stroke Does the patient have a stroke diagnosis?: No <Crystal Edwards PA-C - Last Filed: 07/18/21 08:50> VTE Prior VTE?: No <Crystal Edwards PA-C - Last Filed: 07/18/21 08:50> VTE Risk Level:: Medical - moderate - high <MATEUSZ Huitron Last Filed: 07/18/21 08:50> VTE Device Contraindication: Treatment Not Indicated <Crystal Edwards PA-C - Last Filed: 07/18/21 08:50> VTE Drug Contraindication: N/A - Med Ordered <MATEUSZ Huitron Last Filed: 07/18/21 08:50>
--- NOTE | 2021-07-18 09:39 | P.DS_ITS ---
DS: Providers Provider Date of Service: 07/18/21 <VALENTINA Alexander - Last Filed: 07/18/21 11:07> Date of admission: 07/17/21 10:15 <VALENTINA Alexander - Last Filed: 07/18/21 11:07> Date of discharge: 07/18/21 <VALENTINA Alexander - Last Filed: 07/18/21 11:07> Primary care physician: None Physician <VALENTINA Alexander - Last Filed: 07/18/21 11:07> Consults: 07/15/21 13:47 Consult to Gastroenterology Routine Consulting Provider: Rosa Elena Saab Reason for consultation: intractable nausea and vomiting, left upper quadrant pain Has provider been notified: No 07/17/21 08:14 Consult to General Surgery Routine Consulting Provider: Prasanna Edmond Reason for consultation: ?appendicitis Has provider been notified: No <VALENTINA Alexander - Last Filed: 07/18/21 11:07> Attending physician on discharge: Terence Rader <VALENTINA Alexander - Last Filed: 07/18/21 11:07> Discharging clinician: Magdalena Leavitt <VALENTINA Alexander - Last Filed: 07/18/21 11:07> DS: Diagnosis Discharge Diagnosis (1) S/P laparoscopic appendectomy: Status: Acute <VALENTINA Alexander - Last Filed: 07/18/21 11:07> (2) Acute appendicitis: Status: Acute <VALENTINA Alexander - Last Filed: 07/18/21 11:07> (3) Transaminitis: Status: Acute <VALENTINA Alexander - Last Filed: 07/18/21 11:07> DS: Summary Hospital Course Hospital Course: From H&P on day of admission ?70-year-old Mandarin speaking man presenting with left upper quadrant abdominal pain with nausea, vomiting since yesterday.? He denied fever, chills.? He did report 2 episodes of diarrhea.? The interview was conducted with the computer burlesque dancer.? His son and daughter were present.? The patient denied any recent travel, sick contacts, recent illness.? Prior to yesterday he had been in his usual state of health.? He does have a history of pancreatitis in the past however abdominal CT is not showing this and lipase is negative.? CT did show some inflammation of the appendix but not acute.? Liver enzymes elevated at 194 AST, 425 ALT.? No fever leukocytosis noted, other vital signs stable.? In the ER he received IV fluids, morphine, Zofran and Compazine.? He will be admitted to observation for intractable nausea and vomiting and abdominal pain. abdominal pain - Pain was initially located the left side but later migrated to the right. Seen by GI, viral hepatitis screen was unremarkable. He underwent MRI of the abdomen which showed concern over acute appendicitis. He was seen in consultation by surgery who recommended appendectomy. He underwent laparoscopic appendectomy on July 17. Patient's abdominal pain has improved. He is tolerating a diet and will be discharged home. Patient should call to schedule follow-up appointment with General surgery in 1 week. transaminitis - statin was held. Viral hepatitis screen was unremarkable. LFTs have trended down. Recommend hold statin for 1 week and then resume. Recommend repeat LFTs in the near future. <VALENTINA Alexander - Last Filed: 07/18/21 11:07> Time Spent with Patient Time attestation: Total time spent providing and/or coordinating discharge services: <VALENTINA Alexander Last Filed: 07/18/21 11:07> Discharge coordination time: Greater than 30 minutes <VALENTINA Alexander Last Filed: 07/18/21 11:07> Quality: Stroke Does the patient have a stroke diagnosis?: No <VALENTINA Alexander Last Filed: 07/18/21 11:07> Physical Exam Vital Signs: Vital Signs: Last Vital Signs Temp 98.8 F 07/18/21 07:45 Pulse 51 07/18/21 07:45 Resp 18 07/18/21 07:45 BP 122/65 07/18/21 07:45 Pulse Ox 98 07/18/21 07:45 BMI result Body Mass Index 21.9 <VALENTINA Alexander Last Filed: 07/18/21 11:07> Const: Nutritional Appearance: well nourished <VAELNTINA Alexander Last Filed: 07/18/21 11:07> Orientation/consciousness: patient oriented x3 <VALENTINA Alexander - Last Filed: 07/18/21 11:07> HENMT: Head: Yes normocephalic and Yes atraumatic <VALENTINA Alexander - Last Filed: 07/18/21 11:07> Eyes: Sclerae: sclerae normal <VALENTINA Alexander - Last Filed: 07/18/21 11:07> Resp: Effort & Inspection: normal respiratory effort and no respiratory distress <VALENTINA Alexander - Last Filed: 07/18/21 11:07> Cardio: Rate: regular rate <VALENTINA Alexander - Last Filed: 07/18/21 11:07> Rhythm: regular rhythm <VLAENTINA Alexander - Last Filed: 07/18/21 11:07> GI: Other: mild incisional tenderness <VALENTINA Alexander - Last Filed: 07/18/21 11:07> Inspection: No distended <VALENTINA Alexander - Last Filed: 07/18/21 11:07> Palpation (GI): Soft to palpation <VALENTINA Alexander - Last Filed: 07/18/21 11:07> Neuro: General: patient oriented x3 <VALENTINA Alexander - Last Filed: 07/18/21 11:07> Cranial nerves: Yes CN's II-XII intact bilaterally and Yes Bilaterally intact EOM present <VALENTINA Alexander - Last Filed: 07/18/21 11:07> DS: Data Data Completed and Pending Pending studies at discharge: Pending at discharge 07/17/21 14:31 Surgical [PTH] Routine <VALENTINA Alexander - Last Filed: 07/18/21 11:07> Labs on day of discharge: Laboratory Results - last 24 hr 07/18/21 07/18/21 05:22 05:22 WBC 8.0 RBC 3.60 L Hgb 11.4 L Hct 33.6 L MCV 93.3 MCH 31.7 MCHC 33.9 RDW 12.8 Plt Count 126 L MPV 11.0 Immature Gran % (Auto) 0.2 Neut % (Auto) 80.0 H Lymph % (Auto) 10.4 L [place] % (Auto) 9.4 Eos % (Auto) 0.0 Baso % (Auto) 0.0 Lymph # (Auto) 0.8 L [place] # (Auto) 0.8 Eos # (Auto) 0.0 Baso # (Auto) 0.0 Abs Immat Gran (auto) 0.02 Absolute Neuts (auto) 6.4 Absolute Nucleated RBC 0.000 Nucleated RBC % (auto) 0.0 Sodium 141 Potassium 3.5 Chloride 111 H Carbon Dioxide 23 Anion Gap 11 L BUN 9 Creatinine 0.80 Estim Creat Clear Calc 66.1 Estimated GFR > 60 Random Glucose 123 H Calcium 8.2 L Total Bilirubin 0.6 Direct Bilirubin 0.3 AST 59 H ALT 202 H Alkaline Phosphatase 93 D Total Protein 5.3 L Albumin 3.1 L Preliminary micro results at discharge 07/15/21 08:28 Blood Culture - Preliminary Blood - Venous No growth after 48 hours. 07/15/21 08:09 Blood Culture - Preliminary Blood - Venous No growth after 48 hours. <VALENTINA Alexander - Last Filed: 07/18/21 11:07> Discharge Plan Discharge Patient Disposition: Home, Self-Care <VALENTINA Alexander - Last Filed: 07/18/21 11:07> Discharge Diagnosis: acute appendicitis <VALENTINA Alexander - Last Filed: 07/18/21 11:07> acute appendicitis <Terence Rader MD - Last Filed: 07/21/21 08:35> Referrals: Prasanna Edmond MD [Physician] - 1 Week Physician,None [Primary Care Provider] - 1 Week <VALENTINA Alexander - Last Filed: 07/18/21 11:07> Discharge Medications: New oxycodone 5 mg tablet 5 - 10 mg PO Q6H PRN (Reason: pain) Qty: 26 RF: 0 Continued aspirin 81 mg Tablet,Delayed Release (Dr/Ec) 81 mg PO DAILY 30 Days Qty: 30 RF: 0 Held atorvastatin 80 mg Tablet 80 mg PO BEDTIME 30 Days Qty: 30 RF: 0 Hold Instructions: Resume on 07/25/21. <VALENTINA Alexander - Last Filed: 07/18/21 11:07> Discharge Orders: Discharge Order (Routine); Ordered 07/18/21 Ordered By: Magdalena Leavitt <VALENTINA Alexander - Last Filed: 07/18/21 11:07> Diet: regular diet <VALENTINA Alexander - Last Filed: 07/18/21 11:07> regular diet <Terence Rader MD - Last Filed: 07/21/21 08:35> Activity on Discharge: No heavy lifting <VALENTINA Alexander - Last Filed: 07/18/21 11:07> No heavy lifting <Terence Rader MD - Last Filed: 07/21/21 08:35> Stand Alone Forms: Patient Portal Discharge page <VALENTINA Alexander - Last Filed: 07/18/21 11:07> Activity Restrictions/Additional Instructions: If the incision area is tender, you may apply an ice pack for short intervals (No more than 20 minutes on, followed by at least 20 minutes off). Do not apply heat. Do not use creams, lotions, or topical antibiotics unless instructed to do so by your surgeon. These can cause infection or allergic re action. Ok to shower. Remove clear dressings 2-3 days following your procedure. You have steri strips (small white cloth strips) covering your incision- these will fall off ~1 week (ok if sooner or longer). No heavy lifting (>10lbs) for 2 weeks! Follow up in office with Dr. Edmond in 1-2 weeks. ([phone]) Call Your Doctor If: -Your temperature exceeds 101.5? F -You experience excessive pain or swelling -You have an unexpected reaction to medication -You have excessive bleeding -You experience continued vomiting/nausea -Your incision begins to separate -Your incision shows signs of infection such as increased redness, swelling, excessive pain, drainage (light blood or clear fluid is normal) or heat <VALENTINA Alexander - Last Filed: 07/18/21 11:07> Care Plan Goals: see below <VALENTINA Alexander - Last Filed: 07/18/21 11:07> Health Concerns: abdominal pain secondary to appendicitis <VALENTINA Alexander - Last Filed: 07/18/21 11:07> Plan of Treatment: see post op instructions above call to schedule follow up appointment with Dr. Edmond as above do not take atorvastatin for the next one week <VALENTINA Alexander - Last Filed: 07/18/21 11:07> Assessment: acute appendicitis s/p laparoscopic appendectomy Attending Attestation: I have personally seen and examined the patient independently (on the date of service as documented by NPP), reviewed the NPP history, exam and?MDM and agree with the assessment and plan as?written <VALENTINA Alexander - Last Filed: 07/18/21 11:07> Discharge Date/Time: 07/18/21 17:10 <VALENTINA Alexander - Last Filed: 07/18/21 11:07>
--- NOTE | 2021-07-18 09:43 | MHC.CM.PN ---
NURSE STATE GAME WARDEN NOTE ELECTRONIC MEDICAL RECORD REVIEWED ALONG WITH CASE DISCSSED WITH JASPER MONTGOMERY , PATIENT WILL BE DISCHARGED HOME TODAY WHERE HE LIVES WITH HIS SON AND DAUGHTER IN LAW , SPEAKS ONLY [place], I CALLED AND SPOKE WITH HIS SON DISCHARGE PLAN HOME WITH FAMILY NO SERVICES PCP SPOKE WITH SON HAS NO PCP (CASE MANAGEMENT WASHER ENGINEER HELPER IS TRYING TO SECURE PCP [facility] FOLLOW UP INDICATED ON THE DISCHARGE SCREEN [facility]NNSPORTATION FAMILY
[2021-07-18 11:57] VITALS: BP 119/60; PULSE 55; RESP 18; TEMP 36.8; O2SAT 97
[2021-07-18 13:50] LABS: IgA 264 mg/dL (70-320); IgG 1002 mg/dL (600-1540); IgM 55 mg/dL (50-300)
--- NOTE | 2021-07-18 15:09 | HO.POSTANES ---
Post Anesthesia Evaluation Post Anesthesia Evaluation Vital Signs: Vital Signs Temp Pulse Resp BP Pulse Ox 07/18/21 11:57 98.3 F 55 18 119/60 97 07/18/21 07:45 98.8 F 51 18 122/65 98 07/18/21 03:41 97.9 F 66 17 127/67 97 Anesthesia: General Endotracheal-GETA Mental Status: Awake Pain Control: Satisfactory Nausea/Vomiting: None Hydration: Adequate Anesthesia-Related Issues: No Anes. Related Issues
[2021-07-18 15:45] VITALS: BP 122/67; PULSE 56; RESP 14; TEMP 36.8; O2SAT 98
[2021-07-18 22:37] LABS: Anti Nuclear Antibody Screen NEGATIVE (NEGATIVE)
[2021-07-19 13:36] LABS: EBV-VCA IgM Ab <36.00 U/mL
[2021-07-22 03:11] LABS: CMV DNA PCR Qn Source Whole Blood; CMV DNA Qn PCR Not Detected log IU/mL; CMV DNA Qn Real Time PCR Not Detected
[2021-07-22 11:46] LABS: Smooth Muscle Antibody <20 U (<20)
[2021-07-24 14:21] LABS: Soluble Liver Ag Autoantibody <20.1 U (0.0-20.0)
[2021-07-24 22:11] LABS: HSV 1 IgM IFA Negative (Negative); HSV 2 IgM IFA Negative (Negative)
== END 2021-07-18 17:10 | disposition home or self-care (01) | DRG 234 ==
LOC: HO.ED 13:08 → HO.EDOVER 14:44 → HO.S3 07-17 16:20
PROVIDERS: Internal Medicine Gastroenterology; Surgery; Admitting Provider Nurse Practitioner Acute Care; Emergency Provider Emergency Medicine; Visit Provider Physician Assistant Medical
PROC: 0DTJ4ZZ Resection of Appendix, Percutaneous Endoscopic Approach (ICD-10-PCS; CPT 44970; principal; 2021-07-17 13:00)
DX: K35.80 Unspecified acute appendicitis (principal); I25.10 Atherosclerotic heart disease of native coronary artery without angina pectoris; K36 Other appendicitis; Z86.73 Personal history of transient ischemic attack (TIA), and cerebral infarction without residual deficits; Z20.822 Contact with and (suspected) exposure to COVID-19; Z87.891 Personal history of nicotine dependence; Z79.82 Long term (current) use of aspirin; Z79.899 Other long term (current) drug therapy
CPT/HCPCS: 44970; 36415; 74177; 74183; 80048; 80076; 81001; 82150; 82607; 82728; 82746; 82784; 83520; 83540; 83605; 83690; 85025; 85027; 85610; 86038; 86039; 86255; 86664; 86665; 86695; 86696; 86704; 86706; 86709; 86803; 87040; 87340; 87389; 87497; 87635; 88304; 93005; 96361; 96374; 96375; 96376; 99024; 99218; 99285; A9585; J1100; J1170; J2250; J2270; J2405; J2543; J3010; Q9967